=== PATIENT | male | born 1945 | race Caucasian/White ===

== ENCOUNTER → 2016-04-12 | Outpatient (REF) | payer MEDICARE, OTHER ==
[~2016-04-12] MED LIST: /DIVA50TA PO; /ESCI10TA PO; ALPR2TAB3 PO; AMIT24CA5 PO; ASPI81TA7; ASPI81TA85 PO; ATIV1TAB7 PO; ATOR1TAB19 PO; BENA25TA4 PO; BUSP10TA PO; COUM2.5T11 PO; FEBU40TA PO; LAMI1TAB7 PO; LIPI10TA PO; LISI10TA4 PO; LORA1TAB PO; MINI1CAP PO; OMEP40CA2 PO; PAXI20TA3 PO; PERCOCET PO; PRIN10TA PO; REGL10TA6 PO; SERO50TA PO; SUCR1SS PO; TYLE167L PO; VIIB40TA PO; VITA10002 PO; VITA10003 PO; VITA100037 PO; VITAD1000T PO; ZOFR20TA PO; [UNRECOGNIZED DRUG - OTHER] PO
[2016-04-12 20:22] LABS: ALBUMIN 3.6 GM/DL (3.2-5.2); ALBUMIN/GLOBULIN RATIO 1.29 (1.00-1.93); BILIRUBIN,TOTAL 0.3 MG/DL (0.2-1.0); CALCIUM LEVEL 9.1 MG/DL (8.8-10.2); CREATININE FOR GFR 1.36 MG/DL (0.70-1.30); GLOMERULAR FILTRATION RATE 55.5 (>49); POTASSIUM SERUM 4.6 MEQ/L (3.5-5.1); TOTAL PROTEIN 6.4 GM/DL (6.4-8.2)
== END ==
LOC: M LABDRAWC 16:46
PROVIDERS: ATTEND Family Medicine
DX: E78.5 Hyperlipidemia, unspecified (principal); R73.01 Impaired fasting glucose

== ENCOUNTER → 2016-04-13 | Outpatient (CLI) | payer MEDICARE, OTHER ==
[~2016-04-13] VITALS: Ht 182.9 cm; Wt 87.1 kg
[~2016-04-13] MED LIST changes: +LIDOCAINE 2% INJ 100 MG/5 ML SDV (FOR ANES.) As Ordered ONE; +PROPOFOL 200 MG/20 ML VIAL As Ordered ONE
--- NOTE | 2016-04-13 13:18 | ROOR ---
Patient Name: Omar Torres Procedure Date: 04/13/2016 1:03 PM Date of : 1945 Age: 70 Room: [facility] Gender: Male Note Status: Finalized Procedure: Upper GI endoscopy + Biopsies Indications: Heartburn, Nausea Providers: Slava Ghotra MD Referring MD: Josue Louis MD Requesting Provider: Medicines: Monitored Anesthesia Care Complications: No immediate complications. Procedure: Pre-Anesthesia Assessment: - The heart rate, respiratory rate, oxygen saturations, blood pressure, adequacy of pulmonary ventilation, and response to care were monitored throughout the procedure. The Endoscope was introduced through the mouth, and advanced to the second part of duodenum. The upper GI endoscopy was accomplished without difficulty. The patient tolerated the procedure well. Findings: The Z-line was irregular and was found 40 cm from the incisors. Multiple biopsies were obtained with cold forceps for evaluation to rule out Cesar's Esophagus randomly at the gastroesophageal junction. A small hiatal hernia was present. A small hiatal hernia was present. The exam of the stomach was otherwise normal. Biopsies were taken with a cold forceps in the gastric antrum for Helicobacter pylori testing. The exam of the duodenum was otherwise normal. Impression: - Z-line irregular, 40 cm from the incisors. - Small hiatal hernia. - Small hiatal hernia. - Multiple biopsies were obtained at the gastroesophageal junction. - Biopsies were taken with a cold forceps for Helicobacter pylori testing. - The examination was otherwise normal. Recommendation: - Patient has a contact number available for emergencies. The signs and symptoms of potential delayed complications were discussed with the patient. Return to normal activities tomorrow. Written discharge instructions were provided to the patient. - High fiber diet. - Discharge patient to home. - Follow an antireflux regimen. - Continue present medications. - Await pathology results. - Telephone GI clinic for pathology results in 1 week. - Return to referring physician. - The findings and recommendations were discussed with the patient's family. Slava Ghotra MD Slava Ghotra MD 04/13/2016 1:17:53 PM This report has been signed electronically. Number of Addenda: 0 Note Initiated On: 04/13/2016 1:03 PM Estimated Blood Loss: Estimated blood loss: none.
--- NOTE | 2016-04-13 13:33 | ROOR ---
Patient Name: Omar Torres Procedure Date: 04/13/2016 1:04 PM Date of : 1945 Age: 70 Room: [facility] Gender: Male Note Status: Finalized Procedure: Colonoscopy to Cecum + Biopsy Polypectomy Indications: High risk colon cancer surveillance: Personal history of colonic polyps Providers: Slava Ghotra MD Referring MD: Josue Louis MD Requesting Provider: Medicines: Monitored Anesthesia Care Complications: No immediate complications. Procedure: Pre-Anesthesia Assessment: - The heart rate, respiratory rate, oxygen saturations, blood pressure, adequacy of pulmonary ventilation, and response to care were monitored throughout the procedure. The Colonoscope was introduced through the anus and advanced to the cecum, identified by appendiceal orifice and ileocecal valve. The colonoscopy was performed without difficulty. The patient tolerated the procedure well. The quality of the bowel preparation was good. Findings: The perianal and digital rectal examinations were normal. Non-bleeding internal hemorrhoids were found during retroflexion. The hemorrhoids were small and Grade I (internal hemorrhoids that do not prolapse). A small polyp was found in the hepatic flexure. The polyp was sessile. The polyp was removed with a cold biopsy forceps. Resection and retrieval were complete. The exam was otherwise without abnormality on direct and retroflexion views. Impression: - Non-bleeding internal hemorrhoids. - One small polyp at the hepatic flexure, removed with a cold biopsy forceps. Resected and retrieved. - The examination was otherwise normal on direct and retroflexion views. - The exam was otherwise normal to the cecum. Recommendation: - Patient has a contact number available for emergencies. The signs and symptoms of potential delayed complications were discussed with the patient. Return to normal activities tomorrow. Written discharge instructions were provided to the patient. - High fiber diet. - Discharge patient to home. - Continue present medications. - Await pathology results. - Telephone GI clinic for pathology results in 1 week. - Repeat colonoscopy in 5 years for surveillance based on pathology results. - Return to referring physician. - The findings and recommendations were discussed with the patient's family. Slava Ghotra MD Slava Ghotra MD 04/13/2016 1:33:39 PM This report has been signed electronically. Number of Addenda: 0 Note Initiated On: 04/13/2016 1:04 PM Estimated Blood Loss: Estimated blood loss: none.
[2016-04-13 14:21] VITALS: BP 123/62
== END ==
LOC: M OPP 12:16
PROVIDERS: ATTEND Internal Medicine Gastroenterology
DX: Z12.11 Encounter for screening for malignant neoplasm of colon (principal); Z86.010 Personal history of colon polyps; Z80.0 Family history of malignant neoplasm of digestive organs; K64.0 First degree hemorrhoids; D12.3 Benign neoplasm of transverse colon; R12 Heartburn; R11.0 Nausea; K22.8 Other specified diseases of esophagus; K44.9 Diaphragmatic hernia without obstruction or gangrene; K22.70 Barrett's esophagus without dysplasia; I10 Essential (primary) hypertension; F32.9 Major depressive disorder, single episode, unspecified; E78.5 Hyperlipidemia, unspecified; R01.1 Cardiac murmur, unspecified; J45.909 Unspecified asthma, uncomplicated; Z85.828 Personal history of other malignant neoplasm of skin; Z96.659 Presence of unspecified artificial knee joint; Z87.891 Personal history of nicotine dependence; Z79.82 Long term (current) use of aspirin; Z79.899 Other long term (current) drug therapy

== ENCOUNTER → 2016-05-16 | Outpatient (CLI) | payer MEDICARE, OTHER ==
[~2016-05-16] MED LIST changes: -LIDOCAINE 2% INJ 100 MG/5 ML SDV (FOR ANES.) As Ordered ONE; -PROPOFOL 200 MG/20 ML VIAL As Ordered ONE
--- NOTE | 2016-05-16 15:27 | REP ---
CHEST, TWO VIEWS: HISTORY: Respiratory infection. COMPARISON: 12/10/2014. The lungs are clear. The heart is normal in size. The pulmonary vasculature is normal in appearance. There are old right rib fractures. Degenerative change is present in the thoracic spine. IMPRESSION: No acute disease. Signed by Yoan Weiner MD 05/16/2016 03:33 P
== END ==
LOC: M WUC 14:42
PROVIDERS: ATTEND Physician Assistant Medical
DX: J06.9 Acute upper respiratory infection, unspecified (principal); R11.0 Nausea
CPT/HCPCS: 71020; 85025; 85652; 86140; 86301; G0463

== ENCOUNTER → 2016-05-16 | Outpatient (REF) | payer MEDICARE, OTHER ==
[2016-05-16 16:02] LABS: BASO % 0.2 % (0.0-1.0); EOS # 0.1 K/mm3 (0.0-0.50); EOS % 1.4 % (0.0-3.0); LARGE UNSTAINED CELL # 0.2 K/mm3 (0.0-0.4); LARGE UNSTAINED CELL % 2.5 % (0.0-4.0); LYMPH # 0.9 K/mm3 (1.5-4.5); LYMPH % 8.8 % (24.0-44.0); MEAN CORPUSCULAR HEMOGLOBIN 29.6 pg (27.0-33.0); MONO # 0.8 K/mm3 (0.0-0.8); PLATELET COUNT, AUTOMATED 195 k/mm3 (150-450); RED CELL DISTRIBUTION WIDTH 13.5 % (11.5-14.5); WHITE BLOOD COUNT 7.8 K/mm3 (4.0-10.0)
[2016-05-16 18:31] LABS: ERYTHROCYTE SEDIMENTATION RATE 11 mm/hr (0-20)
== END ==
LOC: M SFHCPLAZ 13:53
PROVIDERS: ATTEND Physician Assistant Medical
DX: R11.0 Nausea (principal); J06.9 Acute upper respiratory infection, unspecified

== ENCOUNTER → 2016-07-26 | Outpatient (REF) | payer MEDICARE, OTHER ==
[2016-07-29 14:19] LABS: HEPATITIS C QUANTITATION HCV Not Detected IU/mL (.)
== END ==
LOC: M SFHCPLAZ 12:29
PROVIDERS: ATTEND Physician Assistant Medical
DX: Z11.59 Encounter for screening for other viral diseases (principal)
CPT/HCPCS: 36415; 87522; G0463

== ENCOUNTER → 2016-08-12 | Outpatient (REF) | payer MEDICARE, OTHER ==
[~2016-08-12] MED LIST changes: -AMIT24CA5 PO; +AMIT24CA7 PO; -COUM2.5T11 PO; +COUM2.5T17 PO; -VITA100037 PO; +VITA100067 PO
[2016-08-12 14:19] LABS: BASO % 0.7 % (0.0-1.0); EOS # 0.3 K/mm3 (0.0-0.50); EOS % 4.8 % (0.0-3.0); LARGE UNSTAINED CELL # 0.2 K/mm3 (0.0-0.4); LYMPH # 1.2 K/mm3 (1.5-4.5); LYMPH % 17.5 % (24.0-44.0); MEAN CORPUSCULAR HEMOGLOBIN 29.6 pg (27.0-33.0); MEAN CORPUSCULAR HGB CONC 33.4 g/dl (32.0-36.5); MEAN CORPUSCULAR VOLUME 88.6 fl (80.0-96.0); MONO # 0.5 K/mm3 (0.0-0.8); MONO % 9.4 % (0.0-5.0); NEUTROPHILS # 3.7 K/mm3 (1.8-7.7); NEUTROPHILS % 64.6 % (36.0-66.0); PLATELET COUNT, AUTOMATED 213 k/mm3 (150-450); RED CELL DISTRIBUTION WIDTH 13.8 % (11.5-14.5); WHITE BLOOD COUNT 5.8 K/mm3 (4.0-10.0)
[2016-08-12 15:31] LABS: ALBUMIN 3.5 GM/DL (3.2-5.2); ALBUMIN/GLOBULIN RATIO 1.25 (1.00-1.93); ALKALINE PHOSPHATASE 68 U/L (45-117); ALT/SGPT 31 U/L (12-78); ANION GAP 8 MEQ/L (8-16); AST/SGOT 16 U/L (15-37); BILIRUBIN,TOTAL 0.4 MG/DL (0.2-1.0); BLOOD UREA NITROGEN 19 MG/DL (7-18); CALCIUM LEVEL 9.1 MG/DL (8.8-10.2); CARBON DIOXIDE LEVEL 29 MEQ/L (21-32); CHLORIDE LEVEL 106 MEQ/L (98-107); CREATININE FOR GFR 1.23 MG/DL (0.70-1.30); GLOMERULAR FILTRATION RATE > 60.0 (>49); GLUCOSE, FASTING 92 MG/DL (80-110); POTASSIUM SERUM 4.6 MEQ/L (3.5-5.1); SODIUM LEVEL 143 MEQ/L (136-145); TOTAL PROTEIN 6.3 GM/DL (6.4-8.2)
[2016-08-13 15:12] LABS: Lyme Disease IgG/IgM Antibodie <0.91 ISR (0.00-0.90); Lyme Disease IgM Ab Quantitati <0.80 index (0.00-0.79)
== END ==
LOC: M LABDRAWP 12:27
PROVIDERS: ATTEND Family Medicine
DX: R53.83 Other fatigue (principal)
CPT/HCPCS: 36415; 80053; 85025; 86617; G0463

== ENCOUNTER → 2016-08-18 | Outpatient (REF) | payer MEDICARE, OTHER | LOC: M LAB REF 12:46 | PROVIDERS: ATTEND Dermatology | DX: D23.70 Other benign neoplasm of skin of unspecified lower limb, including hip (principal) | CPT/HCPCS: 11300; 17000; 17003; 88305; G0463 ==

== ENCOUNTER → 2016-08-31 | Outpatient (REF) | payer MEDICARE, OTHER ==
[2016-08-31 11:55] LABS: BASO % 0.6 % (0.0-1.0); EOS # 0.3 K/mm3 (0.0-0.50); EOS % 4.7 % (0.0-3.0); LARGE UNSTAINED CELL # 0.2 K/mm3 (0.0-0.4); LARGE UNSTAINED CELL % 2.9 % (0.0-4.0); LYMPH # 1.3 K/mm3 (1.5-4.5); LYMPH % 18.7 % (24.0-44.0); MEAN CORPUSCULAR HEMOGLOBIN 29.4 pg (27.0-33.0); MEAN CORPUSCULAR HGB CONC 33.5 g/dl (32.0-36.5); MEAN CORPUSCULAR VOLUME 87.9 fl (80.0-96.0); MONO # 0.6 K/mm3 (0.0-0.8); MONO % 7.9 % (0.0-5.0); NEUTROPHILS # 4.5 K/mm3 (1.8-7.7); NEUTROPHILS % 65.1 % (36.0-66.0); PLATELET COUNT, AUTOMATED 223 k/mm3 (150-450); RED CELL DISTRIBUTION WIDTH 13.8 % (11.5-14.5); WHITE BLOOD COUNT 6.9 K/mm3 (4.0-10.0)
[2016-08-31 12:17] LABS: ANION GAP 8 MEQ/L (8-16); BLOOD UREA NITROGEN 19 MG/DL (7-18); CARBON DIOXIDE LEVEL 28 MEQ/L (21-32); CHLORIDE LEVEL 107 MEQ/L (98-107); CREATININE FOR GFR 1.25 MG/DL (0.70-1.30); GLOMERULAR FILTRATION RATE > 60.0 (>49); GLUCOSE, FASTING 105 MG/DL (80-110); POTASSIUM SERUM 4.3 MEQ/L (3.5-5.1); SODIUM LEVEL 143 MEQ/L (136-145)
[2016-08-31 13:15] LABS: ALBUMIN 3.7 GM/DL (3.2-5.2); ALBUMIN/GLOBULIN RATIO 1.19 (1.00-1.93); ALKALINE PHOSPHATASE 73 U/L (45-117); ALT/SGPT 34 U/L (12-78); ANION GAP 7 MEQ/L (8-16); AST/SGOT 24 U/L (15-37); BILIRUBIN,TOTAL 0.5 MG/DL (0.2-1.0); BLOOD UREA NITROGEN 19 MG/DL (7-18); CALCIUM LEVEL 8.8 MG/DL (8.8-10.2); CARBON DIOXIDE LEVEL 28 MEQ/L (21-32); CHLORIDE LEVEL 108 MEQ/L (98-107); CREATININE FOR GFR 1.25 MG/DL (0.70-1.30); GLOMERULAR FILTRATION RATE > 60.0 (>49); GLUCOSE, FASTING 103 MG/DL (80-110); POTASSIUM SERUM 4.4 MEQ/L (3.5-5.1); SODIUM LEVEL 143 MEQ/L (136-145); TOTAL PROTEIN 6.8 GM/DL (6.4-8.2); URIC ACID 4.6 MG/DL (3.5-7.2)
== END ==
LOC: M SFHCCLAY 08:31
PROVIDERS: ATTEND Family Medicine
DX: N18.3 Chronic kidney disease, stage 3 (moderate) (principal); C61 Malignant neoplasm of prostate; M10.9 Gout, unspecified; Z11.59 Encounter for screening for other viral diseases; R73.01 Impaired fasting glucose
CPT/HCPCS: 80053; 82306; 83036; 83970; 84550; 85025; 86704; 86705; G0103

== ENCOUNTER → 2017-01-09 | Outpatient (REF) | payer MEDICARE, OTHER ==
[2017-01-09 12:15] LABS: ALKALINE PHOSPHATASE 78 U/L (45-117); ALT/SGPT 42 U/L (12-78); ANION GAP 5 MEQ/L (8-16); AST/SGOT 20 U/L (7-37); BILIRUBIN,TOTAL 0.6 MG/DL (0.2-1.0); BLOOD UREA NITROGEN 21 MG/DL (7-18); CARBON DIOXIDE LEVEL 31 MEQ/L (21-32); CHLORIDE LEVEL 106 MEQ/L (98-107); GLOMERULAR FILTRATION RATE > 60.0 (>49); GLUCOSE, FASTING 88 MG/DL (80-110); POTASSIUM SERUM 4.4 MEQ/L (3.5-5.1); SODIUM LEVEL 142 MEQ/L (136-145)
[2017-01-09 12:16] LABS: ALBUMIN 3.7 GM/DL (3.2-5.2); ALBUMIN/GLOBULIN RATIO 1.28 (1.00-1.93); CHOLESTEROL LEVEL 153 MG/DL (<200); TOTAL PROTEIN 6.6 GM/DL (6.4-8.2); TRIGLYCERIDES LEVEL 127 MG/DL (<150)
[2017-01-09 12:21] LABS: VITAMIN B12 LEVEL > 2000 PG/ML (247-911)
== END ==
LOC: M SFHCCLAY 08:35
PROVIDERS: ATTEND Family Medicine
DX: E55.9 Vitamin D deficiency, unspecified (principal); R73.01 Impaired fasting glucose; E53.8 Deficiency of other specified B group vitamins; Z79.899 Other long term (current) drug therapy

== ENCOUNTER → 2017-05-31 | Outpatient (REF) | payer MEDICARE, OTHER ==
[2017-05-31 12:10] LABS: BASO % 0.6 % (0.0-1.0); EOS # 0.2 10^3/uL (0.0-0.50); EOS % 3.2 % (0.0-3.0); HEMATOCRIT 45.5 % (42.0-52.0); HEMOGLOBIN 15.1 g/dl (13.5-17.5); IMMATURE GRANULOCYTE % 0.3 % (0-3.0); LYMPH # 1.2 10^3/uL (1.5-4.5); LYMPH % 18.4 % (24.0-44.0); MEAN CORPUSCULAR HGB CONC 33.2 g/dl (32.0-36.5); MEAN CORPUSCULAR VOLUME 90.3 fl (80.0-96.0); MONO # 0.6 10^3/uL (0.0-0.8); MONO % 9.7 % (0.0-5.0); NEUTROPHILS # 4.2 10^3/uL (1.8-7.7); NEUTROPHILS % 67.8 % (36.0-66.0); PLATELET COUNT, AUTOMATED 215 10^3/uL (150-450); RED BLOOD COUNT 5.04 10^6/uL (4.30-6.10); WHITE BLOOD COUNT 6.3 10^3/uL (4.0-10.0)
[2017-05-31 12:35] LABS: ALBUMIN 3.8 GM/DL (3.2-5.2); ALBUMIN/GLOBULIN RATIO 1.27 (1.00-1.93); ALKALINE PHOSPHATASE 69 U/L (45-117); ALT/SGPT 31 U/L (12-78); ANION GAP 6 MEQ/L (8-16); AST/SGOT 20 U/L (7-37); BILIRUBIN,TOTAL 0.5 MG/DL (0.2-1.0); BLOOD UREA NITROGEN 21 MG/DL (7-18); CALCIUM LEVEL 8.8 MG/DL (8.8-10.2); CARBON DIOXIDE LEVEL 30 MEQ/L (21-32); CHLORIDE LEVEL 107 MEQ/L (98-107); CREATININE FOR GFR 1.24 MG/DL (0.70-1.30); FERRITIN 27 NG/ML (26-388); GLOMERULAR FILTRATION RATE > 60.0 (>49); GLUCOSE, FASTING 90 MG/DL (70-100); IRON (FE) 94 UG/DL (65-175); MAGNESIUM LEVEL 2.5 MG/DL (1.8-2.4); PERCENT SATURATION 24.4 % (19.7-50.0); POTASSIUM SERUM 4.6 MEQ/L (3.5-5.1); PSA SCREENING < 0.01 NG/ML (< 4.0); SODIUM LEVEL 143 MEQ/L (136-145); TOTAL IRON BINDING CAPACITY 385 UG/DL (250-450); TOTAL PROTEIN 6.8 GM/DL (6.4-8.2)
[2017-05-31 12:47] LABS: ESTIMATED AVERAGE GLUCOSE 120 MG/DL (60-110); HEMOGLOBIN A1c 5.8 %
[2017-05-31 15:35] LABS: HEMATOCRIT 45.5 % (42.0-52.0)
[2017-06-02 13:38] LABS: PRETREATED FOLATE FOR RBCFOL 12.1 NG/ML; RBC FOLATE 558.5 NG/ML (280-791)
== END ==
LOC: M SFHCCLAY 08:16
DX: I10 Essential (primary) hypertension (principal); E53.8 Deficiency of other specified B group vitamins; R73.01 Impaired fasting glucose; C61 Malignant neoplasm of prostate; Z12.5 Encounter for screening for malignant neoplasm of prostate
CPT/HCPCS: 83550

== ENCOUNTER → 2017-10-16 | Outpatient (REF) | payer MEDICARE, OTHER ==
[2017-10-16 12:07] LABS: ESTIMATED AVERAGE GLUCOSE 117 MG/DL (60-110); HEMOGLOBIN A1c 5.7 %
[2017-10-16 12:08] LABS: VITAMIN B12 LEVEL > 2000 PG/ML (247-911)
[2017-10-16 12:18] LABS: C REACTIVE PROTEIN QUANTITATIV 0.66 MG/DL (0.00-0.30); CHOLESTEROL LEVEL 145 MG/DL (<200); CHOLESTEROL RISK RATIO 2.636 (<5); CPK CREATINE PHOSPHOKINASE 247 U/L (39-308); FREE T4 0.92 NG/DL (0.76-1.46); HDL CHOLESTEROL 55 MG/DL (>40); LDL CHOLESTEROL 66.8 MG/DL (<100); NON-HDL-C 90 MG/DL; TRIGLYCERIDES LEVEL 116 MG/DL (<150)
== END ==
LOC: M SFHCPLAZ 08:12
DX: E53.8 Deficiency of other specified B group vitamins (principal); E78.5 Hyperlipidemia, unspecified; K59.09 Other constipation; R73.01 Impaired fasting glucose
CPT/HCPCS: 82550

== ENCOUNTER → 2018-02-26 | Outpatient (REF) | payer MEDICARE, OTHER ==
[~2018-02-26] MED LIST changes: -ZOFR20TA PO; +ZOFR4TAB16 PO
[2018-02-26 12:57] LABS: ALBUMIN 3.5 GM/DL (3.2-5.2); ALT/SGPT 34 U/L (12-78); BILIRUBIN,TOTAL 0.4 MG/DL (0.2-1.0); BLOOD UREA NITROGEN 22 MG/DL (7-18); CALCIUM LEVEL 8.5 MG/DL (8.8-10.2); CARBON DIOXIDE LEVEL 26 MEQ/L (21-32); CHLORIDE LEVEL 107 MEQ/L (98-107); CREATININE FOR GFR 1.27 MG/DL (0.70-1.30); GLOMERULAR FILTRATION RATE 59.7 (>42); GLUCOSE, FASTING 88 MG/DL (70-100); MAGNESIUM LEVEL 2.4 MG/DL (1.8-2.4); POTASSIUM SERUM 4.4 MEQ/L (3.5-5.1); PROSTATIC SPECIFIC AG MONITOR < 0.01 NG/ML (< 4.00); PTH INTACT 73.4 PG/ML (18.5-88.0); SODIUM LEVEL 140 MEQ/L (136-145); TOTAL 25(OH) VITAMIN D 38.5 NG/ML (30.0-100.0); TOTAL PROTEIN 6.4 GM/DL (6.4-8.2); URIC ACID 4.2 MG/DL (3.5-7.2)
== END ==
LOC: M SFHCCLAY 08:33
PROVIDERS: ATTEND Family Medicine
DX: I10 Essential (primary) hypertension (principal); E55.9 Vitamin D deficiency, unspecified; M10.9 Gout, unspecified; C61 Malignant neoplasm of prostate

== ENCOUNTER → 2018-03-01 | Outpatient (REF) | payer MEDICARE, OTHER | LOC: M SFHCPLAZ 13:17 | PROVIDERS: ATTEND Family Medicine | DX: F41.0 Panic disorder [episodic paroxysmal anxiety] (principal) | CPT/HCPCS: 36415; 80178; G0463 ==

== ENCOUNTER → 2018-06-04 | Outpatient (REF) | payer MEDICARE, OTHER ==
[~2018-06-04] MED LIST changes: -/DIVA50TA PO; -/ESCI10TA PO; +DEPA1TAB3 PO; +LEXA1TAB PO
[2018-06-04 13:54] LABS: ALBUMIN 3.7 GM/DL (3.2-5.2); CALCIUM LEVEL 9.2 MG/DL (8.8-10.2); CREATININE FOR GFR 1.36 MG/DL (0.70-1.30); FREE T3 2.7 PG/ML (2.2-4.0); GLOMERULAR FILTRATION RATE 55.2 (>42); LITHIUM LEVEL 0.42 MEQ/L (0.60-1.20); PHOSPHORUS LEVEL 2.3 MG/DL (2.5-4.9); POTASSIUM SERUM 5.1 MEQ/L (3.5-5.1); THYROID STIMULATING HORMONE 2.4 uIU/ML (0.358-3.740); THYROXINE (T4) 6.6 UG/DL (4.5-12.0)
== END ==
LOC: M LABDRAWC 11:57
PROVIDERS: ATTEND Anesthesiology Pain Medicine
DX: Z79.899 Other long term (current) drug therapy (principal)

== ENCOUNTER → 2018-08-03 | Outpatient (REF) | payer MEDICARE, OTHER ==
[2018-08-03 11:47] LABS: BASO % 0.6 % (0.0-1.0); EOS # 0.3 10^3/uL (0.0-0.50); EOS % 4.1 % (0.0-3.0); HEMATOCRIT 48.4 % (42.0-52.0); HEMOGLOBIN 15.9 g/dl (13.5-17.5); LYMPH # 1.1 10^3/uL (1.5-4.5); LYMPH % 17.1 % (24.0-44.0); MEAN CORPUSCULAR HEMOGLOBIN 29.7 pg (27.0-33.0); MEAN CORPUSCULAR HGB CONC 32.9 g/dl (32.0-36.5); MEAN CORPUSCULAR VOLUME 90.5 fl (80.0-96.0); MONO # 0.5 10^3/uL (0.0-0.8); MONO % 8.2 % (0.0-5.0); NEUTROPHILS # 4.6 10^3/uL (1.8-7.7); NEUTROPHILS % 69.5 % (36.0-66.0); PLATELET COUNT, AUTOMATED 213 10^3/uL (150-450); RED BLOOD COUNT 5.35 10^6/uL (4.30-6.10); WHITE BLOOD COUNT 6.6 10^3/uL (4.0-10.0)
[2018-08-03 12:20] LABS: ALBUMIN 4.1 GM/DL (3.2-5.2); BILIRUBIN,TOTAL 0.6 MG/DL (0.2-1.0); CALCIUM LEVEL 9.5 MG/DL (8.8-10.2); CREATININE FOR GFR 1.38 MG/DL (0.70-1.30); GLOMERULAR FILTRATION RATE 54.2 (>42); LITHIUM LEVEL 0.44 MEQ/L (0.60-1.20); POTASSIUM SERUM 4.5 MEQ/L (3.5-5.1); TOTAL PROTEIN 7.1 GM/DL (6.4-8.2)
[2018-08-03 12:24] LABS: HEMOGLOBIN A1c 6.4 %
== END ==
LOC: M SFHCCLAY 08:06
PROVIDERS: ATTEND Family Medicine
DX: N18.3 Chronic kidney disease, stage 3 (moderate) (principal); R73.01 Impaired fasting glucose; F41.0 Panic disorder [episodic paroxysmal anxiety]; E53.8 Deficiency of other specified B group vitamins

== ENCOUNTER → 2018-11-09 | Outpatient (REF) | payer MEDICARE, OTHER ==
[~2018-11-09] MED LIST changes: -FEBU40TA PO; +FEBU40TA4 PO
[2018-11-09 18:22] LABS: ALBUMIN 4.1 GM/DL (3.2-5.2); CALCIUM LEVEL 9.1 MG/DL (8.8-10.2); CREATININE FOR GFR 1.66 MG/DL (0.70-1.30); FREE T3 2.5 PG/ML (2.2-4.0); GLOMERULAR FILTRATION RATE 43.7 (>42); LITHIUM LEVEL 0.39 MEQ/L (0.60-1.20); PHOSPHORUS LEVEL 1.7 MG/DL (2.5-4.9); POTASSIUM SERUM 4.2 MEQ/L (3.5-5.1); THYROID STIMULATING HORMONE 2.78 uIU/ML (0.358-3.740); THYROXINE (T4) 6.5 UG/DL (4.5-12.0)
== END ==
LOC: M LABDRAWC 16:21
PROVIDERS: ATTEND Anesthesiology Pain Medicine
DX: Z79.899 Other long term (current) drug therapy (principal)

== ENCOUNTER → 2019-01-21 | Outpatient (REF) | payer MEDICARE, OTHER ==
[2019-01-21 11:43] LABS: ALT/SGPT 45 U/L (12-78); BILIRUBIN,TOTAL 0.6 MG/DL (0.2-1.0); BLOOD UREA NITROGEN 21 MG/DL (7-18); CARBON DIOXIDE LEVEL 29 MEQ/L (21-32); CHLORIDE LEVEL 109 MEQ/L (98-107); CREATININE FOR GFR 1.25 MG/DL (0.70-1.30); FREE T4 1.01 NG/DL (0.76-1.46); GLOMERULAR FILTRATION RATE > 60.0 (>42); GLUCOSE, FASTING 108 MG/DL (70-100); POTASSIUM SERUM 4.6 MEQ/L (3.5-5.1); PROSTATIC SPECIFIC AG MONITOR < 0.01 NG/ML (< 4.00); SODIUM LEVEL 143 MEQ/L (136-145); TOTAL PROTEIN 6.7 GM/DL (6.4-8.2)
[2019-01-21 12:32] LABS: HEMOGLOBIN A1c 6.3 %
[2019-01-21 16:37] LABS: APPEARANCE, URINE CLEAR (CLEAR); BACTERIA, URINE AUTO NEGATIVE (NEGATIVE); BILIRUBIN, URINE AUTO NEGATIVE (NEGATIVE); BLOOD, URINE BLOOD NEGATIVE (NEGATIVE); COLOR, URINE YELLOW (YELLOW); GLUCOSE, URINE (UA) AUTO NEGATIVE (NEGATIVE); KETONE, URINE AUTO NEGATIVE (NEGATIVE); LEUKOCYTE ESTERASE, URINE AUTO NEGATIVE (NEGATIVE); MUCUS, URINE SMALL (NEGATIVE); NITRITE, URINE AUTO NEGATIVE (NEGATIVE); PROTEIN, URINE AUTO NEGATIVE (NEGATIVE); RBC, URINE AUTO 2 /HPF (0-3); SPECIFIC GRAVITY URINE AUTO 1.017 (1.002-1.035); SQUAMOUS EPITHELIAL CELL UR AU 0 /HPF (0-6); UROBILINOGEN, URINE AUTO 0.2 mg/dL (0.0-2.0); WBC, URINE AUTO 0 /HPF (0-3)
[2019-01-21 17:12] LABS: MALB URINE SIEMENS 13.6 MG/L; MAU/CREAT RATIO 7.3 MCG/MG (0.0-30.0)
== END ==
LOC: M SFHCCLAY 08:46
PROVIDERS: ATTEND Family Medicine
DX: R73.01 Impaired fasting glucose (principal); E78.5 Hyperlipidemia, unspecified; C61 Malignant neoplasm of prostate

== ENCOUNTER → 2019-02-07 | Outpatient (REF) | payer MEDICARE, OTHER | LOC: M LAB REF 19:02 | PROVIDERS: ATTEND Dermatology | DX: D29.4 Benign neoplasm of scrotum (principal) ==

== ENCOUNTER → 2019-03-06 | Outpatient (REF) | payer MEDICARE, OTHER | LOC: M LAB REF 10:53 | PROVIDERS: ATTEND Dermatology | DX: L57.0 Actinic keratosis (principal) ==

== ENCOUNTER → 2019-04-16 | Outpatient (CLI) | payer MEDICARE, OTHER ==
--- NOTE | 2019-04-16 14:57 | REPVR ---
PROCEDURE INFORMATION: Exam: CT Maxillofacial Without Contrast, Sinus Exam date and time: 04/16/2019 2:33 PM Age: 73 years old Clinical indication: Other: Sinus pain; Additional info: R43.8 oth disturbances of smell/taste chronic rhin TECHNIQUE: Imaging protocol: CT Maxillofacial without contrast. Focus on the sinuses. Radiation optimization: All CT scans at this facility use at least one of these dose optimization techniques: automated exposure control; mA and/or kV adjustment per patient size (includes targeted exams where dose is matched to clinical indication); or iterative reconstruction. COMPARISON: No relevant prior studies available. FINDINGS: Frontal sinuses: Right frontal sinus is hypoplastic. No air-fluid levels. Ethmoid air cells: Normal. No air-fluid levels. Sphenoid sinuses: Normal. No air-fluid levels. Maxillary sinuses: Normal. No air-fluid levels. Ostiomeatal units are patent. Orbits: Examination reveals bilateral globes to be normal in size and morphology. The optic nerves are normal in thickness and symmetric bilaterally. The extraocular muscles are normal in thickness and signal intensity. The retroconal fat has a normal appearance. The lacrimal glands appear normal bilaterally. Mastoid air cells: The visualized mastoid air cells are clear. Nasal cavity/Septum: The nasal septum is in the midline. The ostiomeatal complexes are patent. Dental: Metallic beam hardening artifact from dental hardware limits evaluation in this region. Soft tissues: Unremarkable. Bones/joints: The visualized paranasal sinuses are clear. There are no air fluid levels to suggest acute sinusitis. The bony orbital amador are intact. No fractures are identified. The visualized osseous structures are unremarkable. No acute fracture or dislocation is seen. IMPRESSION: 1. The visualized paranasal sinuses are clear. There are no air fluid levels to suggest acute sinusitis. 2. The nasal septum is in the midline. The ostiomeatal complexes are patent. Electronically signed by: Albert Vera On 04/16/2019 14:57:20 PM
== END ==
LOC: M RAD 14:17
PROVIDERS: ATTEND Physician Assistant Medical
DX: R43.8 Other disturbances of smell and taste (principal)

== ENCOUNTER → 2019-06-06 | Outpatient (REF) | payer MEDICARE, OTHER ==
[2019-06-06 11:47] LABS: BASO % 0.4 % (0.0-1.0); EOS # 0.3 10^3/uL (0.0-0.5); EOS % 4.2 % (0.0-3.0); HEMATOCRIT 46.7 % (42.0-52.0); LYMPH # 1.4 10^3/uL (1.5-5.0); LYMPH % 20.3 % (24.0-44.0); MEAN CORPUSCULAR HEMOGLOBIN 29.2 pg (27.0-33.0); MEAN CORPUSCULAR HGB CONC 32.1 g/dl (32.0-36.5); MONO # 0.8 10^3/uL (0.0-0.8); MONO % 10.9 % (0.0-5.0); NEUTROPHILS # 4.4 10^3/uL (1.5-8.5); NEUTROPHILS % 64.1 % (36.0-66.0); PLATELET COUNT, AUTOMATED 207 10^3/uL (150-450); RED BLOOD COUNT 5.13 10^6/uL (4.30-6.10); WHITE BLOOD COUNT 6.9 10^3/uL (4.0-10.0)
[2019-06-06 11:51] LABS: ALBUMIN 3.8 GM/DL (3.2-5.2); BILIRUBIN,TOTAL 0.4 MG/DL (0.2-1.0); CALCIUM LEVEL 9.1 MG/DL (8.8-10.2); CHOLESTEROL RISK RATIO 2.472 (<5); CREATININE FOR GFR 1.27 MG/DL (0.70-1.30); GLOMERULAR FILTRATION RATE 59.5 (>42); POTASSIUM SERUM 4.5 MEQ/L (3.5-5.1); TOTAL PROTEIN 6.9 GM/DL (6.4-8.2); URIC ACID 4.5 MG/DL (3.5-7.2)
[2019-06-06 12:01] LABS: PTH INTACT 47.4 PG/ML (18.5-88.0); TOTAL 25(OH) VITAMIN D 41.1 NG/ML (30.0-100.0)
[2019-06-06 12:30] LABS: HEMOGLOBIN A1c 5.9 %
== END ==
LOC: M SFHCCLAY 08:16
PROVIDERS: ATTEND Family Medicine
DX: E53.8 Deficiency of other specified B group vitamins (principal); E55.9 Vitamin D deficiency, unspecified; R73.01 Impaired fasting glucose; E78.5 Hyperlipidemia, unspecified

== ENCOUNTER → 2019-06-24 | Outpatient (CLI) | payer MEDICARE, OTHER ==
--- NOTE | 2019-06-24 14:43 | REP ---
MRI BRAIN WITHOUT CONTRAST: HISTORY: Mild cognitive impairment. Memory loss. Comparison is made with CT study from March 20, 2013 as well as prior MRI study from April 18, 2005. TECHNIQUE: Axial and sagittal imaging planes are utilized for T1 and T2-weighted scans. Sequences include spin-echo, fast spin echo, FLAIR, and diffusion weighted sequences. MRI FINDINGS: Cortical and medullary bone signal intensity are normal. Craniocervical junction and upper cervical cord are unremarkable. There is no MR evidence of significant paranasal sinus disease. No intraorbital abnormality is seen. There is mild generalized volume loss. There are scattered foci of subcortical and periventricular T2 hyperintensity on FLAIR and T2-weighted scans. These foci are similar but more numerous when compared with the April 18, 2005 prior study and are most compatible with small vessel atherosclerotic changes. There is no evidence of acute infarction or other cause of restricted diffusion on diffusion sequence. There is no evidence of intracranial hemorrhage. No mass, extra-axial fluid collection, or midline shift is seen. IMPRESSION: Small vessel changes and minimal volume loss. No acute intracranial abnormality. Electronically Signed by Darwin Franco MD 06/24/2019 03:45 P
== END ==
LOC: M RAD 10:01
PROVIDERS: ATTEND Family Medicine
DX: G31.84 Mild cognitive impairment of uncertain or unknown etiology (principal); I67.2 Cerebral atherosclerosis

== ENCOUNTER → 2019-07-15 | Outpatient (CLI) | payer MEDICARE, OTHER ==
[~2019-07-15] MED LIST changes: +B-CO1TAB12 PO; +CALC600T66 PO; +CLON0.5T2 PO; +IRBE75TA4 PO; +LATU40TA PO; +MAGN400C PO; +METF500T13 PO; +OMEP40CA97 PO; +VITA200016 PO; +ZINC1TAB2 PO
== END ==
LOC: M LABSMTC 13:25
PROVIDERS: ATTEND Anesthesiology
DX: Z01.818 Encounter for other preprocedural examination (principal); Z11.59 Encounter for screening for other viral diseases
CPT/HCPCS: C9803; U0002

== ENCOUNTER 2019-07-17 12:33 | Day surgery (SDC) | payer MEDICARE, OTHER ==
[~2019-07-17] VITALS: Ht 182.9 cm; Wt 89.7 kg
[~2019-07-17 12:33] MED LIST changes: +NS 1,000 ML IV ONE; +fentaNYL 100 MCG/2 ML INJECTION (J3010) As Ordered ONE
[2019-07-17] MEDS ORDERED: propofoL 200 MG/20 ML VIAL As Ordered ONE (12:39)
[2019-07-17] MEDS ORDERED: LIDOCAINE 2% 100MG/5ML SDV (FOR ANES.) As Ordered ONE (12:55)
--- NOTE | 2019-07-17 13:40 | ROOR ---
Patient Name: Omar Torres Procedure Date: 07/17/2019 1:19 PM Date of : 1945 Age: 73 Room: [facility] Gender: Male Note Status: Finalized Procedure: Upper Endoscopy + Biopsies Indications: Heartburn, Follow-up of Cesar's esophagus Providers: Slava Ghotra MD Referring MD: Josue Louis MD Requesting Provider: Medicines: Monitored Anesthesia Care Complications: No immediate complications. Procedure: Pre-Anesthesia Assessment: - The heart rate, respiratory rate, oxygen saturations, blood pressure, adequacy of pulmonary ventilation, and response to care were monitored throughout the procedure. The Endoscope was introduced through the mouth, and advanced to the second part of duodenum. The upper GI endoscopy was accomplished without difficulty. The patient tolerated the procedure well. Findings: The Z-line was irregular and was found 38 cm from the incisors. Multiple biopsies were obtained with cold forceps for evaluation to rule out Cesar's Esophagus randomly at the gastroesophageal junction. A medium-sized hiatal hernia was present. No other significant abnormalities were identified in a careful examination of the stomach. Biopsies were taken with a cold forceps in the gastric antrum for Helicobacter pylori testing. The exam of the duodenum was otherwise normal. Impression: - Z-line irregular, 38 cm from the incisors. - Medium-sized hiatal hernia. - Multiple biopsies were obtained at the gastroesophageal junction. - Biopsies were taken with a cold forceps for Helicobacter pylori testing. - The examination was otherwise normal. Recommendation: - Patient has a contact number available for emergencies. The signs and symptoms of potential delayed complications were discussed with the patient. Return to normal activities tomorrow. Written discharge instructions were provided to the patient. - High fiber diet. - Discharge patient to home. - Continue present medications. - Await pathology results. - Telephone GI clinic for pathology results in 1 week. - Return to referring physician. - Repeat upper endoscopy for surveillance based on pathology results. - The findings and recommendations were discussed with the patient's family. Slava Ghotra MD Slava Ghotra MD 07/17/2019 1:39:44 PM Electronically signed by Slava Ghotra MD Number of Addenda: 0 Note Initiated On: 07/17/2019 1:19 PM Estimated Blood Loss: Estimated blood loss: none.
--- NOTE | 2019-07-17 13:59 | ROOR ---
Patient Name: Omar Torres Procedure Date: 07/17/2019 1:20 PM Date of : 1945 Age: 73 Room: [facility] Gender: Male Note Status: Finalized Procedure: Total Colonoscopy to Cecum + Biopsy Polypectomy Indications: Screening in patient at increased risk: Colorectal cancer in mother before age 60, High risk colon cancer surveillance: Personal history of colonic polyps, Last colonoscopy: 2016 Providers: Slava Ghotra MD Referring MD: Josue Louis MD Requesting Provider: Medicines: Monitored Anesthesia Care Complications: No immediate complications. Procedure: Pre-Anesthesia Assessment: - The heart rate, respiratory rate, oxygen saturations, blood pressure, adequacy of pulmonary ventilation, and response to care were monitored throughout the procedure. The Colonoscope was introduced through the anus and advanced to the cecum, identified by appendiceal orifice and ileocecal valve. The colonoscopy was performed without difficulty. The patient tolerated the procedure well. The quality of the bowel preparation was excellent. Findings: The perianal and digital rectal examinations were normal. Non-bleeding internal hemorrhoids were found during retroflexion. The hemorrhoids were small and Grade I (internal hemorrhoids that do not prolapse). Multiple small and large-mouthed diverticula were found in the recto-sigmoid colon, sigmoid colon and descending colon. A small polyp was found at 50 cm proximal to the anus. The polyp was sessile. The polyp was removed with a jumbo cold forceps. Resection and retrieval were complete. The exam was otherwise without abnormality on direct and retroflexion views. Impression: - Non-bleeding internal hemorrhoids. - Diverticulosis in the recto-sigmoid colon, in the sigmoid colon and in the descending colon. - One small polyp at 50 cm proximal to the anus, removed with a jumbo cold forceps. Resected and retrieved. - The examination was otherwise normal on direct and retroflexion views. - The exam was otherwise normal to the cecum. Recommendation: - Patient has a contact number available for emergencies. The signs and symptoms of potential delayed complications were discussed with the patient. Return to normal activities tomorrow. Written discharge instructions were provided to the patient. - High fiber diet. - Discharge patient to home. - Continue present medications. - Await pathology results. - Telephone GI clinic for pathology results in 1 week. - Repeat colonoscopy for surveillance based on pathology results. - Return to referring physician. - The findings and recommendations were discussed with the patient's family. Slava Ghotra MD Slava Ghotra MD 07/17/2019 1:59:05 PM Electronically signed by Slava Ghotra MD Number of Addenda: 0 Note Initiated On: 07/17/2019 1:20 PM Estimated Blood Loss: Estimated blood loss: none.
[2019-07-17 14:20] VITALS: BP 136/95
== END 2019-07-17 14:33 | disposition home or self-care (01) ==
LOC: M OPP 12:33
PROVIDERS: ATTEND Internal Medicine Gastroenterology
DX: Z12.11 Encounter for screening for malignant neoplasm of colon (principal); Z86.010 Personal history of colon polyps; Z80.0 Family history of malignant neoplasm of digestive organs; K64.0 First degree hemorrhoids; D12.6 Benign neoplasm of colon, unspecified; K57.30 Diverticulosis of large intestine without perforation or abscess without bleeding; K22.8 Other specified diseases of esophagus; K44.9 Diaphragmatic hernia without obstruction or gangrene; K22.70 Barrett's esophagus without dysplasia; R12 Heartburn; E11.9 Type 2 diabetes mellitus without complications; I34.9 Nonrheumatic mitral valve disorder, unspecified; Z79.82 Long term (current) use of aspirin; Z79.84 Long term (current) use of oral hypoglycemic drugs; Z79.899 Other long term (current) drug therapy; Z88.0 Allergy status to penicillin; Z88.4 Allergy status to anesthetic agent; Z91.013 Allergy to seafood
CPT/HCPCS: 43239; 45380; 88305; J3010

== ENCOUNTER → 2019-09-04 | Outpatient (REF) | payer MEDICARE, OTHER ==
[~2019-09-04] MED LIST changes: -NS 1,000 ML IV ONE; -fentaNYL 100 MCG/2 ML INJECTION (J3010) As Ordered ONE
== END ==
LOC: M LAB REF 08:08
PROVIDERS: ATTEND Dermatology
DX: L57.0 Actinic keratosis (principal)

== ENCOUNTER → 2019-09-09 | Outpatient (CLI) | payer MEDICARE, OTHER ==
[~2019-09-09] MED LIST changes: +ABIL1TAB13 PO; +ASPI-161 PO; -ASPI81TA85 PO; +ASPI81TA86 PO; +CALC1TAB26 PO; +FEBU40TA2 PO; +GABA-1171 PO; +METF-838 PO; +PROP10TA56 PO; +SERT25TA21 PO; +SULF1TAB93 PO; +TRAZ-189 PO
[2019-09-09 19:35] LABS: BASO % 0.4 % (0.0-1.0); EOS # 0.2 10^3/uL (0.0-0.5); EOS % 2.5 % (0.0-3.0); HEMATOCRIT 46.4 % (42.0-52.0); HEMOGLOBIN 15.3 g/dl (13.5-17.5); LYMPH # 1.4 10^3/uL (1.5-5.0); MEAN CORPUSCULAR HEMOGLOBIN 30.2 pg (27.0-33.0); MEAN CORPUSCULAR VOLUME 91.7 fl (80.0-96.0); MONO # 0.7 10^3/uL (0.0-0.8); MONO % 8.6 % (0.0-5.0); NEUTROPHILS # 5.8 10^3/uL (1.5-8.5); NEUTROPHILS % 71.3 % (36.0-66.0); PLATELET COUNT, AUTOMATED 214 10^3/uL (150-450); RED BLOOD COUNT 5.06 10^6/uL (4.30-6.10); WHITE BLOOD COUNT 8.1 10^3/uL (4.0-10.0)
[2019-09-09 19:44] LABS: BILIRUBIN,TOTAL 0.4 MG/DL (0.2-1.0); CALCIUM LEVEL 9.7 MG/DL (8.8-10.2); CREATININE FOR GFR 1.37 MG/DL (0.70-1.30); GLOMERULAR FILTRATION RATE 54.5 (>42); POTASSIUM SERUM 4.7 MEQ/L (3.5-5.1)
== END ==
LOC: M LAB 16:48
PROVIDERS: ATTEND Family Medicine
DX: G40.309 Generalized idiopathic epilepsy and epileptic syndromes, not intractable, without status epilepticus (principal)
CPT/HCPCS: 36415; 80053; 80175; 85025; G0463

== ENCOUNTER 2019-10-12 13:06 | Inpatient (IN) | payer MEDICARE, OTHER ==
[~2019-10-12 13:06] MED LIST changes: -ABIL1TAB13 PO; -ASPI-161 PO; -CALC1TAB26 PO; -FEBU40TA2 PO; -GABA-1171 PO; -METF-838 PO; -PROP10TA56 PO; -SERT25TA21 PO; -SULF1TAB93 PO; -TRAZ-189 PO
[2019-10-12] MEDS ORDERED: LORazepam 1 MG TAB As Ordered ONE ×2 (14:15→15:29)
[2019-10-12] MEDS ORDERED: BENZTROPINE 1 MG TAB As Ordered ONE (18:08)
[2019-10-12] MEDS ORDERED: OLANZapine 10 MG TAB As Ordered ONE (22:55)
[2019-10-13] MEDS ORDERED: LURASIDONE 20 MG TAB (LATUDA) As Ordered ONE (09:15)
[2019-10-13] MEDS ORDERED: metFORMIN XR 500MG TAB *GLUCOPHAGE XR As Ordered ONE ×2 (09:15→18:24)
[2019-10-13] MEDS ORDERED: clonazePAM 0.5 MG TAB As Ordered ONE (10:26)
[2019-10-13] MEDS ORDERED: FEBUXOSTAT 40 MG TABLET (ULORIC) ONE (13:00)
[2019-10-13] MEDS ORDERED: CALCIUM/VITAMIN D 500 MG TAB ONE (13:00)
[2019-10-13] MEDS ORDERED: IRBESARTAN 150MG TAB ONE (13:00)
[2019-10-13] MEDS ORDERED: lamoTRIgine 100MG TAB As Ordered ONE (14:59)
[2019-10-13] MEDS ORDERED: ATORVASTATIN 10 MG TAB As Ordered ONE (14:59)
[2019-10-13] MEDS ORDERED: SERTRALINE HCL 25 MG TABLET As Ordered ONE (14:59)
[2019-10-13] MEDS ORDERED: busPIRone 10 MG TAB As Ordered ONE ×2 (14:59→21:14)
[2019-10-13] MEDS ORDERED: OMEPRAZOLE 20 MG CAP As Ordered ONE ×2 (15:00→21:15)
[2019-10-13] MEDS ORDERED: GABAPENTIN 100 MG CAP As Ordered ONE ×2 (15:00→21:15)
[2019-10-13] MEDS ORDERED: MAGNESIUM OXIDE 400 MG TAB (MAG-OX) As Ordered ONE ×2 (15:00→21:16)
[2019-10-13] MEDS ORDERED: traZODone 100 MG TAB As Ordered ONE (21:14)
[2019-10-13] MEDS ORDERED: ARIPiprazole 2 MG TAB As Ordered ONE (21:14)
[2019-10-13] MEDS ORDERED: traZODone 50 MG TAB As Ordered ONE (21:15)
[2019-10-13] MEDS ORDERED: ASPIRIN 81 MG ENTERIC TAB As Ordered ONE (21:15)
[2019-10-14] MEDS ORDERED: metFORMIN (GLUCOPHAGE) 500 MG TAB As Ordered ONE (07:57)
[2019-10-14] MEDS ORDERED: busPIRone 10 MG TAB As Ordered ONE ×2 (07:57→20:18)
[2019-10-14] MEDS ORDERED: SERTRALINE HCL 25 MG TABLET As Ordered ONE (08:00)
[2019-10-14] MEDS ORDERED: ATORVASTATIN 10 MG TAB As Ordered ONE (08:00)
[2019-10-14] MEDS ORDERED: lamoTRIgine 100MG TAB As Ordered ONE (08:00)
[2019-10-14] MEDS ORDERED: OMEPRAZOLE 20 MG CAP As Ordered ONE ×2 (08:01→20:19)
[2019-10-14] MEDS ORDERED: MAGNESIUM OXIDE 400 MG TAB (MAG-OX) As Ordered ONE ×2 (08:01→20:19)
[2019-10-14] MEDS ORDERED: ASPIRIN 81 MG CHEW TABLET As Ordered ONE (08:01)
[2019-10-14] MEDS ORDERED: GABAPENTIN 100 MG CAP As Ordered ONE ×3 (08:03→20:18)
[2019-10-14] MEDS ORDERED: IRBESARTAN 150MG TAB ONE (13:00)
[2019-10-14] MEDS ORDERED: CALCIUM/VITAMIN D 500 MG TAB ONE (13:00)
[2019-10-14] MEDS ORDERED: FEBUXOSTAT 40 MG TABLET (ULORIC) ONE (13:00)
[2019-10-14] MEDS ORDERED: metFORMIN XR 500MG TAB *GLUCOPHAGE XR As Ordered ONE (17:14)
[2019-10-14] MEDS ORDERED: ARIPiprazole 2 MG TAB As Ordered ONE (20:18)
[2019-10-14] MEDS ORDERED: traZODone 50 MG TAB As Ordered ONE (20:19)
[2019-10-14] MEDS ORDERED: ASPIRIN 81 MG ENTERIC TAB As Ordered ONE (20:19)
[2019-10-15] MEDS ORDERED: metFORMIN XR 500MG TAB *GLUCOPHAGE XR As Ordered ONE ×2 (07:36→17:12)
[2019-10-15] MEDS ORDERED: PROPRANOLOL 10 MG TAB As Ordered ONE ×2 (07:47→14:00)
[2019-10-15] MEDS ORDERED: ATORVASTATIN 10 MG TAB As Ordered ONE (09:35)
[2019-10-15] MEDS ORDERED: OMEPRAZOLE 20 MG CAP As Ordered ONE (09:36)
[2019-10-15] MEDS ORDERED: busPIRone 10 MG TAB As Ordered ONE (09:36)
[2019-10-15] MEDS ORDERED: lamoTRIgine 100MG TAB As Ordered ONE (09:36)
[2019-10-15] MEDS ORDERED: GABAPENTIN 100 MG CAP As Ordered ONE ×2 (09:36→15:34)
[2019-10-15] MEDS ORDERED: SERTRALINE HCL 25 MG TABLET As Ordered ONE (09:36)
[2019-10-15] MEDS ORDERED: ASPIRIN 81 MG CHEW TABLET As Ordered ONE (09:37)
[2019-10-15] MEDS ORDERED: ACETAMINOPHEN TAB 650MG DOSE (2X325MG) PO PRN (15:00)
[2019-10-15] MEDS ORDERED: MOM 30ML SUSPENSION UDC PO PRN (15:00)
[2019-10-15] MEDS ORDERED: TRAZ-189 PO (15:05)
[2019-10-15] MEDS ORDERED: METF-838 PO (15:05)
[2019-10-15] MEDS ORDERED: CALC1TAB26 PO (15:05)
[2019-10-15] MEDS ORDERED: ASPI-161 PO (15:05)
[2019-10-15] MEDS ORDERED: MAALOX 30 ML SUSP *UDC PO PRN (15:15)
[2019-10-15] MEDS: ASPIRIN 81 MG CHEW TABLET PO SCH (20:02)
[2019-10-15] MEDS: GABAPENTIN 100 MG CAP PO SCH (20:02)
[2019-10-15] MEDS: IRBESARTAN 150MG TAB PO SCH (20:02)
[2019-10-15] MEDS: busPIRone 10 MG TAB PO SCH (20:02)
[2019-10-15] MEDS: traZODone 50 MG TAB PO SCH (20:02)
[2019-10-15] MEDS: MAGNESIUM OXIDE 400 MG TAB (MAG-OX) PO SCH (20:02)
[2019-10-15] MEDS: ARIPiprazole 2 MG TAB PO SCH (20:02)
[2019-10-15] MEDS: OMEPRAZOLE 20 MG CAP PO SCH (20:03)
[2019-10-16 06:24] VITALS: BP 135/64
[2019-10-16] MEDS: metFORMIN XR 500MG TAB *GLUCOPHAGE XR PO SCH ×2 (07:50→17:11)
[2019-10-16] MEDS: lamoTRIgine 100MG TAB PO SCH (08:56)
[2019-10-16] MEDS: OMEPRAZOLE 20 MG CAP PO SCH ×2 (08:56→21:08)
[2019-10-16] MEDS: ATORVASTATIN 10 MG TAB PO SCH (08:57)
[2019-10-16] MEDS: SERTRALINE HCL 25 MG TABLET PO SCH (08:57)
[2019-10-16] MEDS: CALCIUM/VITAMIN D 500 MG TAB PO SCH (08:57)
[2019-10-16] MEDS: busPIRone 10 MG TAB PO SCH ×2 (08:57→21:11)
[2019-10-16] MEDS: GABAPENTIN 100 MG CAP PO SCH ×3 (08:57→21:10)
[2019-10-16] MEDS: FEBUXOSTAT 40 MG TABLET (ULORIC) PO SCH (08:57)
[2019-10-16] MEDS: PROPRANOLOL 10 MG TAB PO PRN (12:43)
[2019-10-16 16:49] VITALS: BP 139/80
[2019-10-16] MEDS: MAGNESIUM OXIDE 400 MG TAB (MAG-OX) PO SCH (21:07)
[2019-10-16] MEDS: PILL CUTTER 1 EACH XX PRN (21:07)
[2019-10-16] MEDS: IRBESARTAN 150MG TAB PO SCH (21:10)
[2019-10-16] MEDS: traZODone 50 MG TAB PO SCH (21:10)
[2019-10-16] MEDS: ASPIRIN 81 MG CHEW TABLET PO SCH (21:10)
[2019-10-16] MEDS: ARIPiprazole 2 MG TAB PO SCH (21:12)
[2019-10-17] MEDS: PROPRANOLOL 10 MG TAB PO PRN ×2 (06:04→20:47)
[2019-10-17 06:56] VITALS: BP 142/78
[2019-10-17] MEDS: lamoTRIgine 100MG TAB PO SCH (07:36)
[2019-10-17] MEDS: ATORVASTATIN 10 MG TAB PO SCH (07:36)
[2019-10-17] MEDS: GABAPENTIN 100 MG CAP PO SCH ×3 (07:36→20:50)
[2019-10-17] MEDS: SERTRALINE HCL 25 MG TABLET PO SCH (07:36)
[2019-10-17] MEDS: CALCIUM/VITAMIN D 500 MG TAB PO SCH (07:36)
[2019-10-17] MEDS: FEBUXOSTAT 40 MG TABLET (ULORIC) PO SCH (07:36)
[2019-10-17] MEDS: busPIRone 10 MG TAB PO SCH ×2 (07:37→20:47)
[2019-10-17] MEDS: OMEPRAZOLE 20 MG CAP PO SCH ×2 (07:37→20:45)
[2019-10-17] MEDS: metFORMIN XR 500MG TAB *GLUCOPHAGE XR PO SCH ×2 (07:37→17:04)
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
[2019-10-17 18:00] VITALS: BP 161/75
[2019-10-17] MEDS: traZODone 50 MG TAB PO SCH (20:45)
[2019-10-17] MEDS: IRBESARTAN 150MG TAB PO SCH (20:49)
[2019-10-17] MEDS: ASPIRIN 81 MG CHEW TABLET PO SCH (20:49)
[2019-10-17] MEDS: MAGNESIUM OXIDE 400 MG TAB (MAG-OX) PO SCH (20:49)
[2019-10-17] MEDS: ARIPiprazole 2 MG TAB PO SCH (20:59)
[2019-10-18 07:20] VITALS: BP 160/80
[2019-10-18] MEDS: metFORMIN XR 500MG TAB *GLUCOPHAGE XR PO SCH ×2 (07:54→17:13)
[2019-10-18] MEDS: PROPRANOLOL 10 MG TAB PO PRN ×2 (07:59→21:05)
[2019-10-18] MEDS: OMEPRAZOLE 20 MG CAP PO SCH ×2 (08:45→21:05)
[2019-10-18] MEDS: GABAPENTIN 100 MG CAP PO SCH ×3 (08:46→21:04)
[2019-10-18] MEDS: busPIRone 10 MG TAB PO SCH ×2 (08:46→21:03)
[2019-10-18] MEDS: CALCIUM/VITAMIN D 500 MG TAB PO SCH (08:46)
[2019-10-18] MEDS: ATORVASTATIN 10 MG TAB PO SCH (08:46)
[2019-10-18] MEDS: lamoTRIgine 100MG TAB PO SCH (08:46)
[2019-10-18] MEDS: SERTRALINE HCL 25 MG TABLET PO SCH (08:46)
[2019-10-18] MEDS: FEBUXOSTAT 40 MG TABLET (ULORIC) PO SCH (08:47)
--- NOTE | 2019-10-18 12:46 | MHIPNPDOC ---
[facility] Progress Note Progress Note DATE OF SERVICE: 10/18/19 HISTORY: Patient is a 74 year old , retired Male who was brought to [facility] by his for severe anxiety. VITAL SIGNS: See below. NEW TEST RESULTS: CURRENT MEDICATIONS: See below. MENTAL STATUS EXAMINATION: Patient is a 74 year old male, who was brought in to the hospital for severe anxiety. He reports that last night was the first good night's rest that he has had in a long time. He states that he has had some improvement in anxiety. During his individual session, he reported that he had increase in anxiety and s ubsequent depression due to COVID. Reporting that COVID caused his mental instability due to being quarantined to home, while he is a very social person. He reports that during the height of the pandemic he was very isolative, withdrawn and very depressed. His was added to the discussion via phone as we have done since the start of his admission, she reports that he appears over the phone to have some improvement in his speech and his report of his evening and today. She again expressed concern about his medications and wanting to continue with Dr. Oconnell for outpatient services along with cognitive behavioral therapy. Patient reports that his daughter his researching places for further hospitalization. He reports that she made recommendation of a place in [place], [place]. I reinforced with the patient that he is improving and that the need for hospitalization is very low. Patient feels that discharge today is premature. He reports continued anxiety but is also reporting that he is improving, having taken Propranolol along with his bedtime medications may have helped him tremendously with his sleep. He did, however, report that he started to lie down this morning and he became anxious, ruminative and had mild racing thoughts. He then made himself go to a group therapy session. Speech: Is spontaneous, fluid and conversant. Language skills are Thought processes including: Reality based, linear and goal oriented Thought content: He is negative for any abnormal thought content. He is not reporting and is not observed with jack, psychosis, delusions or auditory or visual hallucinations Description of abnormal or psychotic thoughts: None Judgment: Good Insight: Good Orientation: Alert and oriented x [address] person, [address], time and situation Recent and remote memory: Intact Attention span and concentration: Good Language: Good Fund of knowledge: Good Mood: Anxious. Affect: Full range DIAGNOSES: 1. Major Depressive Disorder, Recurrent, Moderate 2. Generalized Anxiety Disorder 3. Obsessive Compulsive Disorder ASSESSMENT: Patient is stabilizing but reports that he has only had one day of good sleep and continues to have anxiety intermittently throughout the day, he is pleasant and cooperative in his individual session and engaged in group therapy. MANAGEMENT PLAN: Discharge on Monday if patient is reporting stable mood, decreased anxiety attacks. TIME SPENT: 50 minutes. Vital Signs Vital Signs Date Time Temp Pulse Resp B/P (MAP) Pulse Ox O2 Delivery O2 Flow Rate FiO2 10/18/19 07:59 64 156/80 10/18/19 07:20 98.2 14 98 Room Air Current Medications Current Medications Medications (Trade) Dose Ordered Sig/Jan Route PRN Reason Start Time Stop Time Status Last Admin Dose Admin Acetaminophen (Tylenol Tab) 650 mg Q6HP PRN PO HEADACHE/INDIGESTION 10/15/19 15:00 Al Hydrox/Mg Hydrox/Simethicone (Mylanta) 30 ml Q4HP PRN PO HEARTBURN/INDIGESTION 10/15/19 15:15 Aripiprazole (AbiLIFY) 2 mg QHS PO 10/15/19 21:00 10/17/19 20:59 Aspirin (Aspirin Chewable) 81 mg QHS PO 10/15/19 21:00 10/17/19 20:49 Atorvastatin Calcium (Lipitor) 10 mg DAILY PO 10/16/19 09:00 10/18/19 08:46 Buspirone HCl (Buspar) 10 mg BID PO 10/15/19 21:00 10/18/19 08:46 Calcium/Vitamin D (Oscal D) 500 mg DAILY PO 10/16/19 09:00 10/18/19 08:46 Febuxostat (Uloric) 40 mg DAILY PO 10/16/19 09:00 10/18/19 08:47 Gabapentin (Neurontin) 100 mg TID PO 10/15/19 21:00 10/17/19 12:51 DC 10/17/19 07:36 Gabapentin (Neurontin) 200 mg TID PO 10/17/19 16:00 10/18/19 08:46 Home Med (Med Rec Complete!) ASDIRECTED XX 10/15/19 15:15 10/15/19 15:12 DC Irbesartan (Avapro) 75 mg QHS PO 10/15/19 21:00 10/17/19 20:49 Lamotrigine (LaMICtal) 100 mg DAILY PO 10/16/19 09:00 10/18/19 08:46 Magnesium Hydroxide (Milk Of Magnesia) 30 ml DAILYPRN PRN PO CONSTIPATION 10/15/19 15:00 10/15/19 20:04 Magnesium Oxide (Mag-Ox) 400 mg QHS PO 10/15/19 21:00 10/17/19 20:49 Metformin HCl (Glucophage Xr) 500 mg BIDWM PO 10/16/19 08:00 10/18/19 07:54 Omeprazole (PriLOSEC) 40 mg BID PO 10/15/19 21:00 10/18/19 08:45 Propranolol HCl (Inderal) 5 mg TID PRN PO ANXIETY/PANIC ATTACKS 10/15/19 15:15 10/18/19 07:59 Sertraline HCl (Zoloft) 25 mg DAILY PO 10/16/19 09:00 10/18/19 08:46 Trazodone HCl (Desyrel) 150 mg QHS PO 10/15/19 21:00 10/17/19 20:45 Allergies Coded Allergies: iodine (Verified Allergy, Severe, anaphylaxis, 07/15/19) Penicillins (Verified Allergy, Intermediate, hives, 07/15/19) SEAFOOD (Unverified Allergy, Unknown, ANAPHYLAXIS, 04/06/16) NIA SWARTZ NP Oct 18, 2019 12:46
[2019-10-18 16:00] VITALS: BP 140/80
[2019-10-18] MEDS ORDERED: IBUPROFEN 600MG TAB PO PRN (20:45)
[2019-10-18] MEDS: ARIPiprazole 2 MG TAB PO SCH (20:59)
[2019-10-18] MEDS: ASPIRIN 81 MG CHEW TABLET PO SCH (21:01)
[2019-10-18] MEDS: traZODone 50 MG TAB PO SCH (21:03)
[2019-10-18] MEDS: IRBESARTAN 150MG TAB PO SCH (21:03)
[2019-10-18] MEDS: BACTRIM 160MG/800MG DS TAB PO SCH (21:03)
[2019-10-18] MEDS: MAGNESIUM OXIDE 400 MG TAB (MAG-OX) PO SCH (21:04)
[2019-10-18] MEDS: PILL CUTTER 1 EACH XX PRN (21:07)
--- NOTE | 2019-10-18 21:24 | IPNPDOC ---
Date Seen The patient was seen on 10/18/19. Progress Note I was called to [facility] to assess patient's new complaint of a ruptured blister on the L foot. SUBJECTIVE: Denies fevers, chills, chest pain. Reports pain to palpation at the site of the ruptured blister. OBJECTIVE PHYSICAL EXAMINATION: VITAL SIGNS: Please see below. GENERAL: NAD HEENT: PERRLA CARDIOVASCULAR: RRR, normal S1, S2. RESPIRATORY: CTA. ABDOMINAL: soft, non tedner EXTREMITIES: marked swelling of entire L foot. Warm to touch, mild erythema. Plantar surface of left 1st metatarsal head - rupture cystic structure, with mil d surrounding erythema ~3 cm in diameter. Pulses 2+ bilaterally. Serosanguinous discharge. NEUROLOGICAL: no focal deficits PSYCHOLOGICAL: calm, cooperative. LABORATORY DATA, IMAGING STUDIES, MICROBIOLOGY: Please see below. ASSESSMENT AND PLAN: this is a 74 yo M admitted to [facility] due to severe anxiety. Denies hx of DM2. Concern for developing cellulitis at site of ruptured blister on head of 1st L metatarsal. Describes purulence 1 day ago. PROBLEMS: 1. LLE cellulitis (non purulent): No concern for deep tissue infection. Bactrim DS 1 tab BID for 7 days. ANTONIO hose. Ibuprofen 600 mg TID prn for pain inflammation. PCP follow up on DC from [facility]. Please call again as necessary. VS, I&O, 24H, Fishbone Vital Signs/I&O Vital Signs Date Time Temp Pulse Resp B/P (MAP) Pulse Ox O2 Delivery O2 Flow Rate FiO2 10/18/19 21:05 80 140/80 10/18/19 16:00 98.1 16 10/18/19 07:20 98 Room Air LORNA WEAVER MD Oct 18, 2019 21:24
[2019-10-19 06:23] VITALS: BP 142/76
[2019-10-19] MEDS: PILL CUTTER 1 EACH XX PRN ×2 (07:48→20:42)
[2019-10-19] MEDS: metFORMIN XR 500MG TAB *GLUCOPHAGE XR PO SCH ×2 (07:49→17:14)
[2019-10-19] MEDS: PROPRANOLOL 10 MG TAB PO PRN ×2 (07:50→20:47)
[2019-10-19] MEDS: CALCIUM/VITAMIN D 500 MG TAB PO SCH (08:56)
[2019-10-19] MEDS: GABAPENTIN 100 MG CAP PO SCH ×3 (08:56→20:43)
[2019-10-19] MEDS: FEBUXOSTAT 40 MG TABLET (ULORIC) PO SCH (08:56)
[2019-10-19] MEDS: SERTRALINE HCL 25 MG TABLET PO SCH (08:56)
[2019-10-19] MEDS: OMEPRAZOLE 20 MG CAP PO SCH ×2 (08:56→20:45)
[2019-10-19] MEDS: busPIRone 10 MG TAB PO SCH ×2 (08:56→20:43)
[2019-10-19] MEDS: BACTRIM 160MG/800MG DS TAB PO SCH ×2 (08:57→20:43)
[2019-10-19] MEDS: ATORVASTATIN 10 MG TAB PO SCH (08:57)
[2019-10-19] MEDS: lamoTRIgine 100MG TAB PO SCH (08:57)
[2019-10-19] MEDS ORDERED: ONDANSETRON 4 MG ORAL DISINTEGRATING TAB SL ONE (13:30)
[2019-10-19 16:13] VITALS: BP 135/66
[2019-10-19] MEDS: IRBESARTAN 150MG TAB PO SCH (20:42)
[2019-10-19] MEDS: ARIPiprazole 2 MG TAB PO SCH (20:43)
[2019-10-19] MEDS: traZODone 50 MG TAB PO SCH (20:45)
[2019-10-19] MEDS: ASPIRIN 81 MG CHEW TABLET PO SCH (20:45)
[2019-10-19] MEDS: MAGNESIUM OXIDE 400 MG TAB (MAG-OX) PO SCH (20:45)
[2019-10-20] MEDS: PROPRANOLOL 10 MG TAB PO PRN ×2 (06:22→21:00)
[2019-10-20 06:45] VITALS: BP 130/64
[2019-10-20] MEDS: metFORMIN XR 500MG TAB *GLUCOPHAGE XR PO SCH ×2 (07:04→17:08)
[2019-10-20] MEDS: SERTRALINE HCL 25 MG TABLET PO SCH (08:39)
[2019-10-20] MEDS: CALCIUM/VITAMIN D 500 MG TAB PO SCH (08:39)
[2019-10-20] MEDS: GABAPENTIN 100 MG CAP PO SCH ×3 (08:39→21:02)
[2019-10-20] MEDS: busPIRone 10 MG TAB PO SCH ×2 (08:39→21:01)
[2019-10-20] MEDS: FEBUXOSTAT 40 MG TABLET (ULORIC) PO SCH (08:39)
[2019-10-20] MEDS: lamoTRIgine 100MG TAB PO SCH (08:39)
[2019-10-20] MEDS: BACTRIM 160MG/800MG DS TAB PO SCH ×2 (08:40→20:54)
[2019-10-20] MEDS: OMEPRAZOLE 20 MG CAP PO SCH ×2 (08:40→20:58)
[2019-10-20] MEDS: ATORVASTATIN 10 MG TAB PO SCH (08:40)
[2019-10-20 16:25] VITALS: BP 138/82
[2019-10-20] MEDS: PILL CUTTER 1 EACH XX PRN (20:54)
[2019-10-20] MEDS: traZODone 50 MG TAB PO SCH (20:58)
[2019-10-20] MEDS: IRBESARTAN 150MG TAB PO SCH (20:58)
[2019-10-20] MEDS: ASPIRIN 81 MG CHEW TABLET PO SCH (21:00)
[2019-10-20] MEDS: ARIPiprazole 2 MG TAB PO SCH (21:01)
[2019-10-20] MEDS: MAGNESIUM OXIDE 400 MG TAB (MAG-OX) PO SCH (21:01)
[2019-10-21 06:15] VITALS: BP 138/70
[2019-10-21] MEDS: metFORMIN XR 500MG TAB *GLUCOPHAGE XR PO SCH (07:57)
[2019-10-21] MEDS: SERTRALINE HCL 25 MG TABLET PO SCH (08:56)
[2019-10-21] MEDS: OMEPRAZOLE 20 MG CAP PO SCH (08:56)
[2019-10-21] MEDS: CALCIUM/VITAMIN D 500 MG TAB PO SCH (08:56)
[2019-10-21] MEDS: BACTRIM 160MG/800MG DS TAB PO SCH (08:56)
[2019-10-21] MEDS: lamoTRIgine 100MG TAB PO SCH (08:56)
[2019-10-21] MEDS: GABAPENTIN 100 MG CAP PO SCH ×2 (08:56→15:11)
[2019-10-21] MEDS: FEBUXOSTAT 40 MG TABLET (ULORIC) PO SCH (08:56)
[2019-10-21] MEDS: busPIRone 10 MG TAB PO SCH (08:56)
[2019-10-21] MEDS: ATORVASTATIN 10 MG TAB PO SCH (08:56)
[2019-10-21 08:58] VITALS: BP 138/70
[2019-10-21] MEDS: PROPRANOLOL 10 MG TAB PO PRN (08:58)
[2019-10-21] MEDS ORDERED: SERT25TA21 PO (12:31)
[2019-10-21] MEDS ORDERED: FEBU40TA2 PO (12:31)
[2019-10-21] MEDS ORDERED: SULF1TAB93 PO (12:31)
[2019-10-21] MEDS ORDERED: LAMI1TAB7 PO (12:31)
[2019-10-21] MEDS ORDERED: GABA-1171 PO (12:31)
[2019-10-21] MEDS ORDERED: BUSP10TA PO (12:31)
[2019-10-21] MEDS ORDERED: ABIL1TAB13 PO (12:31)
[2019-10-21] MEDS ORDERED: PROP10TA56 PO (12:31)
--- NOTE | 2019-10-21 12:49 | MHDSPDOC ---
[facility] Discharge Summary Discharge Summary DATE OF ADMISSION: Oct 12, 2019 at 22:00 DATE OF DISCHARGE: October 21, 2019 1241 DISCHARGE DIAGNOSES: 1. Generalized Anxiety Disorder 2. Major Depressive Disorder, Recurrent, Moderate 3. Unspecified Trauma and Stressor Disorder REASON FOR ADMISSION: Patient was brought in by his who reported the patient to have extreme anxiety. He had reported depression, an severe increase in anxiety and fleeting suicidal ideation. Patient was reporting depressive symptoms and it appears that he was suffering from discontinuation syndrome from Latuda, concurrently during his admission patient had reported to me that he was taking Benadryl and allergy medications for sleep x several weeks. This may have caused anticholinergic toxicity thus the increase anxiety, agitation, fatigue, at times he was confused. His had reported that he had "eyes that of a wild man." He reported being very dehydrated. CONSULTANTS INVOLVED: Please see Dr. Cintron's consultation report dated 10/18/19. TREATMENT AND PROGRESS ON THE UNIT : Patient was afforded: 1) Individual Therapy, 2) Group Therapy, 3)Psychopharmacologic management, 4)Liaison between patient's for information conducted by social work department with the patient and the family for the purpose of education and discharge planning. HOSPITAL COURSE: Patient was started on Gabapentin 100 mg three times daily which was increased to 200 mg three times daily as he reported continued anxiety. Buspar was continued from patient's home medication regimen. Zoloft 25 mg daily, Abilify 2 mg to augment the Zoloft and Propranolol 5 mg three times daily PRN for anxiety. Patient was cooperative and pleasant in the milieu and with peers. He reported that he was having some difficulty with sleep. He had realized that taking Propranolol 5 mg before bed was very helpful in allowing him to get adequate rest. Prior to this, he reported racing thoughts. DISCHARGE ASSESSMENT: Patient is psychiatrically stable for discharge. He reports minimal depression and anxiety symptoms. MENTAL STATUS EXAMINATION ON DISCHARGE: Patient is a 74-year old , retired male, who is reporting decreased anxiety and depressive symptoms Speech is Spontaneous, Conversant Language skills are Good Thought processes including: Linear and Goal oriented Thought content: Negative for psychosis, jack, delusional thoughts, auditory or visual hallucinations Abstract reasoning, and computation: Good Description of associations: Negative Description of abnormal or psychotic thoughts: Negative Judgment: Good Insight: Good Orientation to Alert and oriented x 3 Recent and remote memory: Good/Intact Attention span and concentration: Good Language: Good Fund of knowledge: Patient is well-educated Mood: Euthymic Affect: Euthymic MEDICATIONS ON DISCHARGE: Please see medication list See Medication Reconcilation PLAN/FOLLOWUP ARRANGEMENTS: See [employer] Clerk's documentation. Patient wants to follow up with Dr. Oconnell at [facility]. Patient will have PCP and follow up with him for wound care of foot if necessary The amount of time spent in the coordination of care for this patient was approximately 40 minutes. Patient's was on phone and we reviewed his medications, dose, route and frequency. Patient reports that he will follow treatment plan and will maintain compliance. Patient and were satisfied with care. He is motivated for his outpatient services to be continued with Dr. Oconnell and feels that cognitive therapy will be helpful along with medication management. Vital Signs/I&Os Vital Signs Date Time Temp Pulse Resp B/P (MAP) Pulse Ox O2 Delivery O2 Flow Rate FiO2 10/21/19 08:58 78 138/70 10/21/19 06:15 98.5 18 10/19/19 06:23 Room Air 10/18/19 07:20 98 Medications Scheduled Aripiprazole (Abilify) 2 Mg Tablet, 2 MG PO QHS for Augment for Zoloft, #7 Aspirin (Aspirin EC) 81 Mg Tablet.dr, 81 MG PO QHS for . , (Reported) Atorvastatin Calcium (Atorvastatin Calcium) 10 Mg Tab, 10 MG PO QHS for . , (Reported) B-Complex with Vitamin C (Vitamin B Complex-Vitamin C) 1 Each Tablet, 1 TAB PO DAILY for . , (Reported) Buspirone HCl (Buspirone HCl) 10 Mg Tab, 10 MG PO BID for Anxiety, #7 Calcium Carbonate/Vitamin D3 (Calcium 600-Vit D3 800 Tablet) 1 Each Tablet, 1 TAB PO QHS for . , (Reported) Febuxostat (Febuxostat) 40 Mg Tablet, 40 MG PO DAILY for treats uric acid, #7 Gabapentin (Gabapentin) 100 Mg Capsule, 200 MG PO TID for Anxiety, #21 Irbesartan (Irbesartan) 75 Mg Tablet, 75 MG PO QHS for . , (Reported) Lamotrigine (Lamictal) 100 Mg Tab, 100 MG PO QHS for Mood Stabilization, #7 Magnesium Oxide (Magnesium) 400 Mg Capsule, 400 MG PO QHS for . , (Reported) Metformin HCl (Metformin HCl ER) 500 Mg Tab.er.24h, 500 MG PO BIDWM for . , (Reported) Omeprazole (Omeprazole) 40 Mg Capsule.dr, 40 MG PO BID for . , (Reported) Sertraline HCl (Sertraline HCl) 25 Mg Tablet, 25 MG PO DAILY for Antidepression, #7 Sulfamethoxazole/Trimethoprim (Sulfamethoxazole-Tmp Ds Tablet) 1 Each Tablet, 1 TAB PO BID for antibiotic for Foot, #7 Trazodone HCl (Trazodone HCl) 100 Mg Tablet, 100 MG PO QHS for . , (Reported) Scheduled PRN Propranolol HCl (Propranolol HCl) 10 Mg Tablet, 5 MG PO TID PRN for ANXIETY/PANIC ATTACKS, #21 Allergies Coded Allergies: iodine (Verified Allergy, Severe, anaphylaxis, 07/15/19) Penicillins (Verified Allergy, Intermediate, hives, 07/15/19) SEAFOOD (Unverified Allergy, Unknown, ANAPHYLAXIS, 04/06/16) NIA SWARTZ NP Oct 21, 2019 12:49
[2019-11-25 14:59] LABS: BASO % 0.3 % (0.0-1.0); EOS # 0.1 10^3/uL (0.0-0.5); EOS % 0.6 % (0.0-3.0); HEMATOCRIT 47.8 % (42.0-52.0); HEMOGLOBIN 16.4 g/dl (13.5-17.5); LYMPH % 8.2 % (24.0-44.0); MEAN CORPUSCULAR HGB CONC 34.3 g/dl (32.0-36.5); MEAN CORPUSCULAR VOLUME 90.4 fl (80.0-96.0); MONO # 0.9 10^3/uL (0.0-0.8); MONO % 7.2 % (0.0-5.0); NEUTROPHILS # 10.2 10^3/uL (1.5-8.5); NEUTROPHILS % 83.4 % (36.0-66.0); PLATELET COUNT, AUTOMATED 280 10^3/uL (150-450); RED BLOOD COUNT 5.29 10^6/uL (4.30-6.10); WHITE BLOOD COUNT 12.3 10^3/uL (4.0-10.0)
--- NOTE | 2019-12-02 10:29 | MHHPE ---
DATE OF ADMISSION: 10/13/2019 HISTORY OF PRESENT ILLNESS: The patient was brought to the emergency room yesterday, 10/12/2019, and he complained of extreme anxiety. He also said that he had been sleeping for about 5 days and he mentioned that he has fleeting suicidal ideation but that he could control the suicidal thoughts because he had had a friend who had shot himself and he would never do that to his family. He mentioned that he felt that his mind was constantly racing, his thoughts would not stop. The patient also reported poor concentration and his reported that he had seen Dr. Gaffney for several years and that his medications were constantly changed. Apparently, according to what his said, on 08/26/2019 the patient was taken to [facility] for a possible stroke and they did all sorts of test on him but they concluded that it was not a stroke and they thought it could be a seizure. As a result, Dr. Gaffney stopped his Latuda and his current symptoms of extreme anxiety started shortly after that. The patient has been on Seroquel in the past but he stopped taking it because it was too sedating. He also had been taking Klonopin and Xanax in the past, but he said that he stopped taking it because it was too much, however he does not remember how long ago he stopped them. His reported that he really did not want to kill himself but he was afraid that he would end up hurting himself because of his anxiety. Today, 10/13/2019, the patient reports that his anxiety has been terrible, he reports that in the past he has had panic attacks and that his anxiety has gotten worse since he stopped taking Latuda. He says he did not know about discontinuation syndrome and Latuda was stopped abruptly. He says that he was receiving samples of Latuda from Dr. Gaffney. He reports that he never knew what his real diagnosis is and he constantly asked Dr. Gaffney if he was bipolar but Dr. Gaffney told him that he did not have bipolar disorder. The patient tells me today that his anxiety is a little bit decreased compared to how it was yesterday at the emergency room. The patient was started on Latuda 20 mg twice a day because this commercial lines underwriter thought that because he was having discontinuation syndrome that he probably should be started again on this medication, but he does not fill criteria for depression or bipolar disorder, therefore this medication will be discontinued again and he will be started on other medications. PAST PSYCHIATRIC HISTORY: As I mentioned above, he has been in treatment for several years with Dr. Gaffney, for anxiety and depression, and he always had thought that he has bipolar disorder. He mentioned a previous traumatic experience at age 16 when his mother of cancer and he saw her . He says that was very painful for him to deal with plus there were some family dynamics that were complicated for a young teenager to deal with. His sister was the only child born within his family in 150 years so it was highly celebrated when she was born and he felt left out which affected him too. He says his father was an alcoholic and this affected their relationship as well. MEDICAL HISTORY: The patient has hypertension, hyperlipidemia, diabetes, insomnia, and, as I mentioned before, depression and anxiety. FAMILY MEDICAL HISTORY: His mother of cancer. FAMILY PSYCHIATRIC HISTORY: His father was an alcoholic and, according to what the patient thinks, apparently anxiety and depression runs in the family, his one and only sister, he says, has the same issues that he has but worse. PSYCHIATRIC REVIEW OF SYSTEMS: The patient denies symptoms of jack prior or present, but he acknowledges symptoms of depression including lack of motivation, poor attention and concentration, decreased interest in activities that he used to enjoy, feelings of guilt, and hopelessness and helplessness that have been triggered by his anxiety. He denies active suicidal thoughts but reports fleeting suicidal ideation, and he says he will never act upon that because one of his friends committed suicide by shooting himself and he would not inflict the same pain on his own family. He would not want to hurt his family the way that his friend hurt his own family after he killed himself. Psychosis: The patient denies thought delusions, denies auditory, visual, or tactile hallucinations, and he is not responding to internal stimuli. Trauma: The patient was traumatized by his mothers and the family dynamics, he was traumatized by his fathers alcohol abuse and how he responded when he was under the influence to different members of the family. He denies nightmares or flashbacks at this time, but sometimes he has some intrusive thoughts. Anxiety: The patient reports high levels of anxiety, he says his mind does not stop from thinking all the time, he reports panic attacks, he has taken medications for that as well. PSYCHOSOCIAL HISTORY: The patient had one sister only. He grew up with mom and dad, mom and dad were . His mother when he was 16 years old and she of cancer. He remained living with his father and his sister was sent away with another relative so that they would be able to take care of her, she was only 5 years old when their mother . His father remarried and he felt betrayed because his father never talked to them about his plans of marrying his second and that marriage ended soon. The patient is currently , he feels supported by his , he denies legal problems. MENTAL STATUS EXAMINATION: The patient is alert and oriented times three, he is cooperative and pleasant. He is dressed in hospital clothes, he is very fidgety, he constantly moves in his chair. Eye contact is good and intense at times, thought process is linear and coherent, thought content is anxious, depressed, but is negative for suicidal thoughts or homicidal thoughts. Speech is fast but not pressured, spontaneous and fluent, normal in tone and volume. Mood and affect are anxious and mildly depressed. Insight and judgment are fair. ASSESSMENT: The patient has been under treatment for several years and apparently he has been receiving Latuda and many other medications that were discontinued somehow abruptly, specifically Latuda. I believe he has been suffering from discontinuation syndrome, but once I spoke with the patient he does not fulfill criteria for bipolar disorder. I will discontinue Latuda and I will start him on Zoloft 25 mg by mouth daily, Abilify 2 mg by mouth daily which I think is necessary to give Zoloft a boost because he is 74 years old and he cannot take high doses of antidepressants. I will start him on gabapentin 100 mg three times a day because it can help with anxiety in some patients and I will start propranolol 5 mg by mouth three times a day as needed for severe anxiety or for panic attacks. I will discontinue Klonopin 0.5 mg twice a day that I had indicated yesterday. DIAGNOSES: 1. Generalized anxiety disorder, severe. 2. Major depressive disorder, recurrent, moderate. 3. Unspecified trauma and stressor disorder. RECOMMENDATIONS: I believe that the patient needs therapy to deal with his history of trauma during childhood. At one time, he was attending [facility] and he saw Dr. Sy but he stopped going to therapy. I think it will be important for him to resume that type of treatment besides taking his medications. Will encourage him to attend groups and to seek support in nursing staff and his psychiatrist. Will followup. NANCI
[2020-01-05 11:48] LABS: ACETAMINOPHEN LEVEL < 2.0 UG/ML (10.0-30.0); ALBUMIN 4.3 GM/DL (3.2-5.2); ALT/SGPT 44 U/L (12-78); AMPHETAMINES LEVEL URINE NEGATIVE (NEGATIVE); BARBITURATES URINE NEGATIVE (NEGATIVE); BENZODIAZEPINES URINE NEGATIVE (NEGATIVE); BILIRUBIN,DIRECT 0.1 MG/DL (0.0-0.2); BILIRUBIN,TOTAL 0.6 MG/DL (0.2-1.0); BLOOD UREA NITROGEN 20 MG/DL (7-18); CALCIUM LEVEL 9.4 MG/DL (8.8-10.2); CANNABINOIDS URINE NEGATIVE (NEGATIVE); CARBON DIOXIDE LEVEL 23 MEQ/L (21-32); CHLORIDE LEVEL 110 MEQ/L (98-107); COCAINE METABOLITE URINE NEGATIVE (NEGATIVE); CREATININE FOR GFR 1.62 MG/DL (0.70-1.30); ETHYL ALCOHOL (ETHANOL) < 0.003 % (0.000-0.010); GLOMERULAR FILTRATION RATE 44.8 (>42); GLUCOSE, FASTING 92 MG/DL (70-100); METHADONE URINE NEGATIVE (NEGATIVE); OPIATES URINE NEGATIVE (NEGATIVE); PHENCYCLIDINE URINE NEGATIVE (NEGATIVE); POTASSIUM SERUM 4.8 MEQ/L (3.5-5.1); SALICYLATE LEVEL < 1.7 MG/DL (5.0-30.0); SODIUM LEVEL 141 MEQ/L (136-145); TOTAL PROTEIN 7.7 GM/DL (6.4-8.2)
== END 2019-10-21 16:30 | disposition home or self-care (01) | DRG 880 ==
LOC: M ED 13:06 → UNDOADMIN 22:00 → M PSY 22:00
PROVIDERS: ADMIT Psychiatry & Neurology Psychiatry; ATTEND Psychiatry & Neurology Psychiatry
DX: F41.1 Generalized anxiety disorder (principal); F33.1 Major depressive disorder, recurrent, moderate; L03.116 Cellulitis of left lower limb; Z79.899 Other long term (current) drug therapy; Z79.82 Long term (current) use of aspirin; Z88.0 Allergy status to penicillin; Z88.8 Allergy status to other drugs, medicaments and biological substances; Z91.013 Allergy to seafood

== ENCOUNTER → 2019-11-08 | Outpatient (REF) | payer MEDICARE, OTHER ==
[~2019-11-08] MED LIST changes: +ABIL1TAB13 PO; +ASPI-161 PO; +CALC1TAB26 PO; +FEBU40TA2 PO; +GABA-1171 PO; +METF-838 PO; +PROP10TA56 PO; +SERT25TA21 PO; +SULF1TAB93 PO; +TRAZ-189 PO
[2019-11-08 13:52] LABS: ALBUMIN 3.6 GM/DL (3.2-5.2); ALT/SGPT 39 U/L (12-78); BILIRUBIN,TOTAL 0.3 MG/DL (0.2-1.0); BLOOD UREA NITROGEN 19 MG/DL (7-18); CALCIUM LEVEL 9.3 MG/DL (8.8-10.2); CARBON DIOXIDE LEVEL 33 MEQ/L (21-32); CHLORIDE LEVEL 107 MEQ/L (98-107); CHOLESTEROL LEVEL 171 MG/DL (<200); CHOLESTEROL RISK RATIO 2.514 (<5); CREATININE FOR GFR 1.23 MG/DL (0.70-1.30); FREE T4 0.88 NG/DL (0.76-1.46); GLOMERULAR FILTRATION RATE > 60.0 (>42); GLUCOSE, FASTING 101 MG/DL (70-100); HDL CHOLESTEROL 68 MG/DL (>40); LDL CHOLESTEROL 80 MG/DL (<100); NON-HDL-C 103 MG/DL; POTASSIUM SERUM 5.5 MEQ/L (3.5-5.1); SODIUM LEVEL 142 MEQ/L (136-145); TOTAL PROTEIN 6.8 GM/DL (6.4-8.2); TRIGLYCERIDES LEVEL 113 MG/DL (<150)
== END ==
LOC: M LABDRAWC 11:48
PROVIDERS: ATTEND Family Medicine
DX: N18.3 Chronic kidney disease, stage 3 (moderate) (principal); I12.9 Hypertensive chronic kidney disease with stage 1 through stage 4 chronic kidney disease, or unspecified chronic kidney disease; Z12.5 Encounter for screening for malignant neoplasm of prostate
CPT/HCPCS: 36415; 80053; 80061; 84439; 84443; G0103

== ENCOUNTER → 2020-01-16 | Outpatient (REF) | payer MEDICARE, OTHER | LOC: M LAB REF 15:09 → EEVIPCON 15:09 | PROVIDERS: ATTEND Podiatrist | DX: M79.672 Pain in left foot (principal); L03.129 Acute lymphangitis of unspecified part of limb ==

== ENCOUNTER → 2020-02-06 | Outpatient (CLI) | payer SELFPAY | LOC: M LABSMTC 13:15 | PROVIDERS: ATTEND Pediatrics | DX: Z20.828 Contact with and (suspected) exposure to other viral communicable diseases (principal) ==

== ENCOUNTER → 2020-02-18 | Outpatient (REF) | payer MEDICARE, OTHER ==
[2020-02-18 12:14] LABS: BASO % 0.4 % (0.0-1.0); EOS # 0.2 10^3/uL (0.0-0.5); EOS % 2.5 % (0.0-3.0); HEMATOCRIT 49.1 % (42.0-52.0); HEMOGLOBIN 15.5 g/dl (13.5-17.5); LYMPH # 1.4 10^3/uL (1.5-5.0); MEAN CORPUSCULAR HGB CONC 31.6 g/dl (32.0-36.5); MEAN CORPUSCULAR VOLUME 91.9 fl (80.0-96.0); MONO # 0.7 10^3/uL (0.0-0.8); NEUTROPHILS # 5.2 10^3/uL (1.5-8.5); NEUTROPHILS % 68.8 % (36.0-66.0); PLATELET COUNT, AUTOMATED 214 10^3/uL (150-450); RED BLOOD COUNT 5.34 10^6/uL (4.30-6.10); WHITE BLOOD COUNT 7.5 10^3/uL (4.0-10.0)
[2020-02-18 12:47] LABS: TOTAL PROTEIN,RANDOM URINE 15.5 MG/DL (0.0-12.0)
[2020-02-18 15:36] LABS: HEMOGLOBIN A1c 5.9 %
== END ==
LOC: M SFHCCLAY 08:24
PROVIDERS: ATTEND Family Medicine
DX: E53.8 Deficiency of other specified B group vitamins (principal); R73.01 Impaired fasting glucose

== ENCOUNTER → 2020-06-02 | Outpatient (REF) | payer MEDICARE, OTHER ==
[~2020-06-02] MED LIST changes: +LISI10TA22 PO; -LISI10TA4 PO
[2020-06-02 12:01] LABS: HEMOGLOBIN A1c 5.7 %
[2020-06-02 12:09] LABS: ALBUMIN 3.8 GM/DL (3.2-5.2); ALT/SGPT 35 U/L (12-78); BILIRUBIN,TOTAL 0.3 MG/DL (0.2-1.0); BLOOD UREA NITROGEN 22 MG/DL (7-18); C REACTIVE PROTEIN QUANTITATIV 1.01 MG/DL (0.00-0.30); CALCIUM LEVEL 9.2 MG/DL (8.8-10.2); CARBON DIOXIDE LEVEL 29 MEQ/L (21-32); CHLORIDE LEVEL 105 MEQ/L (98-107); CHOLESTEROL LEVEL 145 MG/DL (<200); CHOLESTEROL RISK RATIO 2.543 (<5); CPK CREATINE PHOSPHOKINASE 176 U/L (39-308); CREATININE FOR GFR 1.21 MG/DL (0.70-1.30); FREE T4 0.92 NG/DL (0.76-1.46); GLOMERULAR FILTRATION RATE > 60.0 (>42); GLUCOSE, FASTING 105 MG/DL (70-100); HDL CHOLESTEROL 57 MG/DL (>40); LDL CHOLESTEROL 64 MG/DL (<100); NON-HDL-C 88 MG/DL; POTASSIUM SERUM 4.4 MEQ/L (3.5-5.1); SODIUM LEVEL 140 MEQ/L (136-145); TOTAL PROTEIN 6.7 GM/DL (6.4-8.2); TRIGLYCERIDES LEVEL 118 MG/DL (<150); URIC ACID 4.3 MG/DL (3.5-7.2)
== END ==
LOC: M SFHCCLAY 08:40
PROVIDERS: ATTEND Family Medicine
DX: R73.01 Impaired fasting glucose (principal); C61 Malignant neoplasm of prostate; M10.9 Gout, unspecified
CPT/HCPCS: 80053; 80061; 82550; 83036; 83525; 84439; 84443; 84550; 86140; G0103

== ENCOUNTER → 2020-06-08 | Outpatient (CLI) | payer MEDICARE, OTHER ==
--- NOTE | 2020-06-08 17:30 | REP ---
INDICATION: PNEUMONIA, UNSPECIFIED ORGANISM. COMPARISON: 05/16/2016 TECHNIQUE: PA and lateral FINDINGS: The superior mediastinal structures are midline. The cardiac silhouette is unremarkable in size, shape, and position. The diaphragmatic surfaces of the lungs are regular, and the costophrenic angles are clear. The pulmonary ribeiro are clear. The imaged osseous structures are intact. IMPRESSION: There is no acute cardiopulmonary disease. <Electronically signed by Nito Vaughn > 06/08/20 [id number]
== END ==
LOC: M RAD 17:05
PROVIDERS: ATTEND Family Medicine
DX: J18.9 Pneumonia, unspecified organism (principal)

== ENCOUNTER 2020-08-25 10:46 | Emergency (ER) | payer MEDICARE, OTHER ==
[~2020-08-25] VITALS: Ht 182.9 cm; Wt 88.6 kg
[~2020-08-25 10:46] MED LIST changes: +BACTDSTA PO; +OMEP40CA4 PO; -OMEP40CA97 PO; -SULF1TAB93 PO
[2020-08-25] MEDS ORDERED: GABA-1171 PO (11:05)
[2020-08-25] MEDS ORDERED: PROP10TA56 PO (11:05)
[2020-08-25] MEDS ORDERED: ZINC1TAB2 PO (11:05)
--- NOTE | 2020-08-25 11:15 | REP ---
INDICATION: worse MORAN, dizziness COMPARISON: 10/12/2019 TECHNIQUE: Axial noncontrast images from the skull base to the thoracic inlet with coronal reformations. This CT examination was performed using the following dose reduction techniques: Automated exposure control, adjustment of mA and/or kv according to the patient's size, and use of iterative reconstruction technique. FINDINGS: Atrophy with periventricular leukomalacia and microvascular ischemic changes are appreciated. The ventricles and sulci are symmetric. Dill-white differentiation is maintained. There is no evidence for acute intracranial hemorrhage, mass/mass effect, pathology or infarction. No extra-axial fluid collection. Calvarium is intact. Paranasal sinuses and mastoid air cells are clear. IMPRESSION: Atrophy and microvascular ischemic changes. No acute intracranial hemorrhage, infarction, or mass/mass effect. <Electronically signed by Jasvir Gaona > 08/25/20 [id number]
[2020-08-25] MEDS ORDERED: NS 1,000 ML IV ONE (11:45)
[2020-08-25] MEDS ORDERED: ACETAMINOPHEN 500 MG TAB PO ONE (11:45)
[2020-08-25] MEDS ORDERED: diphenhydrAMINE 50MG/ML VIAL (J1200) IV ONE (11:45)
[2020-08-25 11:57] LABS: BASO % 0.4 % (0.0-1.0); EOS # 0.1 10^3/uL (0.0-0.5); EOS % 1.4 % (0.0-3.0); HEMATOCRIT 47.1 % (42.0-52.0); HEMOGLOBIN 15.9 g/dl (13.5-17.5); LYMPH # 0.8 10^3/uL (1.5-5.0); LYMPH % 11.5 % (24.0-44.0); MEAN CORPUSCULAR HEMOGLOBIN 30.1 pg (27.0-33.0); MEAN CORPUSCULAR HGB CONC 33.8 g/dl (32.0-36.5); MEAN CORPUSCULAR VOLUME 89.2 fl (80.0-96.0); MONO # 0.6 10^3/uL (0.0-0.8); MONO % 7.8 % (2.0-8.0); NEUTROPHILS # 5.8 10^3/uL (1.5-8.5); NEUTROPHILS % 78.5 % (36.0-66.0); PLATELET COUNT, AUTOMATED 221 10^3/uL (150-450); RED BLOOD COUNT 5.28 10^6/uL (4.30-6.10); WHITE BLOOD COUNT 7.3 10^3/uL (4.0-10.0)
[2020-08-25] MEDS ORDERED: KETOROLAC 30 MG/ML 1ML VIAL IV ONE (12:00)
[2020-08-25] MEDS ORDERED: METOCLOPRAMIDE INJ 10MG/2ML VIAL (J2765 PER 1) IV ONE (12:00)
[2020-08-25 12:17] LABS: ERYTHROCYTE SEDIMENTATION RATE 6 mm/hr (0-20)
[2020-08-25 12:24] LABS: ALBUMIN 3.9 GM/DL (3.2-5.2); BILIRUBIN,TOTAL 0.6 MG/DL (0.2-1.0); C REACTIVE PROTEIN QUANTITATIV 0.33 MG/DL (0.00-0.30); CALCIUM LEVEL 9.3 MG/DL (8.8-10.2); CREATININE FOR GFR 1.3 MG/DL (0.70-1.30); GLOMERULAR FILTRATION RATE 57.8 (>42); POTASSIUM SERUM 4.4 MEQ/L (3.5-5.1); TOTAL PROTEIN 6.9 GM/DL (6.4-8.2)
[2020-08-25 14:30] VITALS: BP 130/64
== END 2020-08-25 15:02 | disposition home or self-care (01) ==
LOC: M ED 10:46
DX: R51.9 Headache, unspecified (principal); K21.9 Gastro-esophageal reflux disease without esophagitis; G47.33 Obstructive sleep apnea (adult) (pediatric); N18.30 Chronic kidney disease, stage 3 unspecified; Z79.84 Long term (current) use of oral hypoglycemic drugs; Z79.899 Other long term (current) drug therapy; Z88.0 Allergy status to penicillin; Z91.013 Allergy to seafood; Z91.89 Other specified personal risk factors, not elsewhere classified
CPT/HCPCS: 70450; 80053; 85025; 85652; 86140; 93041; 96361; 96374; 96375; 99284; J1200; J1885; J2765

== ENCOUNTER → 2020-09-29 | Outpatient (REF) | payer MEDICARE, OTHER ==
[~2020-09-29] MED LIST changes: -LATU40TA PO; +LATU40TA2 PO
[2020-09-29 13:18] LABS: BASO % 0.5 % (0.0-1.0); EOS # 0.1 10^3/uL (0.0-0.5); EOS % 2.1 % (0.0-3.0); HEMATOCRIT 46.6 % (42.0-52.0); LYMPH % 16.3 % (24.0-44.0); MEAN CORPUSCULAR HEMOGLOBIN 29.9 pg (27.0-33.0); MEAN CORPUSCULAR HGB CONC 32.2 g/dl (32.0-36.5); MEAN CORPUSCULAR VOLUME 92.8 fl (80.0-96.0); MONO # 0.6 10^3/uL (0.0-0.8); MONO % 9.7 % (2.0-8.0); NEUTROPHILS # 4.3 10^3/uL (1.5-8.5); NEUTROPHILS % 70.9 % (36.0-66.0); PLATELET COUNT, AUTOMATED 224 10^3/uL (150-450); RED BLOOD COUNT 5.02 10^6/uL (4.30-6.10); WHITE BLOOD COUNT 6.1 10^3/uL (4.0-10.0)
[2020-09-29 13:21] LABS: ALBUMIN 3.8 GM/DL (3.2-5.2); ALT/SGPT 44 U/L (12-78); BILIRUBIN,TOTAL 0.4 MG/DL (0.2-1.0); BLOOD UREA NITROGEN 22 MG/DL (7-18); CALCIUM LEVEL 8.9 MG/DL (8.8-10.2); CARBON DIOXIDE LEVEL 30 MEQ/L (21-32); CHLORIDE LEVEL 108 MEQ/L (98-107); CREATININE FOR GFR 1.12 MG/DL (0.70-1.30); FERRITIN 77 NG/ML (26-388); GLOMERULAR FILTRATION RATE > 60.0 (>42); GLUCOSE, FASTING 116 MG/DL (70-100); POTASSIUM SERUM 4.6 MEQ/L (3.5-5.1); SODIUM LEVEL 144 MEQ/L (136-145); TOTAL PROTEIN 6.8 GM/DL (6.4-8.2)
[2020-09-29 13:25] LABS: PTH INTACT 51.6 PG/ML (18.5-88.0); VITAMIN B12 LEVEL 692 PG/ML (247-911)
[2020-09-29 13:53] LABS: HEMOGLOBIN A1c 5.9 %
== END ==
LOC: M SFHCCLAY 08:30
PROVIDERS: ATTEND Family Medicine
DX: R73.01 Impaired fasting glucose (principal); E53.8 Deficiency of other specified B group vitamins; E55.9 Vitamin D deficiency, unspecified

== ENCOUNTER → 2020-10-28 | Outpatient (CLI) | payer MEDICARE, OTHER ==
[~2020-10-28] MED LIST changes: +LATU40TA PO; -LATU40TA2 PO
== END ==
LOC: M LABSMTC 09:12
PROVIDERS: ATTEND Pediatrics
DX: Z11.52 Encounter for screening for COVID-19 (principal)
CPT/HCPCS: C9803; U0003

== ENCOUNTER → 2021-02-01 | Outpatient (REF) | payer MEDICARE, OTHER ==
[2021-02-01 12:50] LABS: ALBUMIN 3.9 GM/DL (3.2-5.2); ALT/SGPT 41 U/L (12-78); BILIRUBIN,TOTAL 0.3 MG/DL (0.2-1.0); BLOOD UREA NITROGEN 21 MG/DL (7-18); CALCIUM LEVEL 9.2 MG/DL (8.8-10.2); CARBON DIOXIDE LEVEL 30 MEQ/L (21-32); CHLORIDE LEVEL 105 MEQ/L (98-107); CHOLESTEROL LEVEL 154 MG/DL (<200); CREATININE FOR GFR 1.25 MG/DL (0.70-1.30); GLOMERULAR FILTRATION RATE > 60.0 (>42); GLUCOSE, FASTING 124 MG/DL (70-100); HDL CHOLESTEROL 50 MG/DL (>40); LDL CHOLESTEROL 54 MG/DL (<100); MALB URINE SIEMENS 7.5 MG/L; MAU/CREAT RATIO 6.3 MCG/MG (0.0-30.0); NON-HDL-C 104 MG/DL; NT-PRO BNP 31 PG/ML (<125); POTASSIUM SERUM 4.6 MEQ/L (3.5-5.1); SODIUM LEVEL 140 MEQ/L (136-145); TRIGLYCERIDES LEVEL 248 MG/DL (<150)
== END ==
LOC: M SFHCCLAY 08:30
PROVIDERS: ATTEND Family Medicine
DX: E78.5 Hyperlipidemia, unspecified (principal); R73.01 Impaired fasting glucose; C61 Malignant neoplasm of prostate; Z12.5 Encounter for screening for malignant neoplasm of prostate
CPT/HCPCS: 80053; 80061; 82043; 83525; 83880; G0103

== ENCOUNTER → 2021-06-15 | Outpatient (REF) | payer MEDICARE, OTHER ==
[~2021-06-15] MED LIST changes: -LATU40TA PO; +LATU40TA2 PO
[2021-06-15 12:03] LABS: BASO % 0.6 % (0.0-1.0); EOS # 0.2 10^3/uL (0.0-0.5); EOS % 2.5 % (0.0-3.0); HEMATOCRIT 44.2 % (42.0-52.0); HEMOGLOBIN 14.5 g/dl (13.5-17.5); LYMPH # 1.1 10^3/uL (1.5-5.0); LYMPH % 15.7 % (24.0-44.0); MEAN CORPUSCULAR HEMOGLOBIN 29.5 pg (27.0-33.0); MEAN CORPUSCULAR HGB CONC 32.8 g/dl (32.0-36.5); MONO # 0.7 10^3/uL (0.0-0.8); NEUTROPHILS # 5.2 10^3/uL (1.5-8.5); NEUTROPHILS % 71.9 % (36.0-66.0); PLATELET COUNT, AUTOMATED 215 10^3/uL (150-450); RED BLOOD COUNT 4.91 10^6/uL (4.30-6.10); WHITE BLOOD COUNT 7.2 10^3/uL (4.0-10.0)
[2021-06-15 12:10] LABS: ALBUMIN 3.7 GM/DL (3.2-5.2); BILIRUBIN,TOTAL 0.7 MG/DL (0.2-1.0); CALCIUM LEVEL 8.8 MG/DL (8.8-10.2); CREATININE FOR GFR 1.28 MG/DL (0.70-1.30); GLOMERULAR FILTRATION RATE 58.6 (>42); POTASSIUM SERUM 4.6 MEQ/L (3.5-5.1); TOTAL PROTEIN 6.6 GM/DL (6.4-8.2); URIC ACID 3.5 MG/DL (3.5-7.2)
== END ==
LOC: M SFHCCLAY 08:20
PROVIDERS: ATTEND Family Medicine
DX: R73.01 Impaired fasting glucose (principal); N18.30 Chronic kidney disease, stage 3 unspecified; M10.9 Gout, unspecified; D50.9 Iron deficiency anemia, unspecified

== ENCOUNTER → 2021-11-12 | Outpatient (REF) | payer MEDICARE, OTHER ==
[2021-11-12 12:26] LABS: ALBUMIN 3.9 GM/DL (3.2-5.2); BILIRUBIN,TOTAL 0.4 MG/DL (0.2-1.0); CALCIUM LEVEL 9.4 MG/DL (8.8-10.2); CREATININE FOR GFR 1.3 MG/DL (0.70-1.30); GLOMERULAR FILTRATION RATE 57.4 (>42); MAGNESIUM LEVEL 2.5 MG/DL (1.8-2.4); POTASSIUM SERUM 4.4 MEQ/L (3.5-5.1); TOTAL PROTEIN 6.9 GM/DL (6.4-8.2)
[2021-11-12 12:34] LABS: HEMOGLOBIN A1c 6.1 %
[2021-11-12 12:37] LABS: MAU/CREAT RATIO 8.9 MCG/MG (0.0-30.0)
== END ==
LOC: M SFHCCLAY 08:26
PROVIDERS: ATTEND Family Medicine
DX: I10 Essential (primary) hypertension (principal); R73.01 Impaired fasting glucose

== ENCOUNTER → 2022-02-17 | Outpatient (REF) | payer MEDICARE, OTHER ==
[2022-02-17 16:04] LABS: HEMOGLOBIN A1c 5.5 % (4.0-6.0)
[2022-02-17 16:17] LABS: ALBUMIN 3.8 G/DL (3.2-5.2); ALKALINE PHOSPHATASE 76 U/L (46-116); ALT/SGPT 35 U/L (7.0-40); AST/SGOT 25 U/L (<34); BILIRUBIN,TOTAL 0.5 MG/DL (0.3-1.2); BLOOD UREA NITROGEN 22 MG/DL (9-23); CALCIUM LEVEL 9.3 MG/DL (8.3-10.6); CARBON DIOXIDE LEVEL 29 MMOL/L (20-31); CHLORIDE LEVEL 105 MMOL/L (98-107); CREATININE FOR GFR 1.24 MG/DL (0.70-1.30); GLOMERULAR FILTRATION RATE > 60.0 (>42); GLUCOSE, FASTING 92 MG/DL (74-106); POTASSIUM SERUM 4.5 MMOL/L (3.5-5.1); SODIUM LEVEL 141 MMOL/L (136-145); TOTAL PROTEIN 6.3 G/DL (5.7-8.2)
[2022-02-17 16:19] LABS: BASO % 0.5 % (0.0-1.0); EOS # 0.1 10^3/uL (0.0-0.5); EOS % 2.2 % (0.0-3.0); HEMATOCRIT 44.8 % (42.0-52.0); HEMOGLOBIN 14.3 g/dl (13.5-17.5); LYMPH # 1.2 10^3/uL (1.5-5.0); LYMPH % 18.7 % (24.0-44.0); MEAN CORPUSCULAR HEMOGLOBIN 29.5 pg (27.0-33.0); MEAN CORPUSCULAR HGB CONC 31.9 g/dl (32.0-36.5); MEAN CORPUSCULAR VOLUME 92.6 fl (80.0-96.0); MONO # 0.5 10^3/uL (0.0-0.8); MONO % 8.3 % (2.0-8.0); NEUTROPHILS # 4.5 10^3/uL (1.5-8.5); NEUTROPHILS % 69.8 % (36.0-66.0); PLATELET COUNT, AUTOMATED 194 10^3/uL (150-450); RED BLOOD COUNT 4.84 10^6/uL (4.30-6.10); WHITE BLOOD COUNT 6.4 10^3/uL (4.0-10.0)
[2022-02-17 16:26] LABS: FERRITIN 37.5 NG/ML (10.5-307.3)
[2022-02-17 16:29] LABS: VITAMIN B12 LEVEL 415 PG/ML (211-911)
[2022-02-17 16:33] LABS: URIC ACID 4.2 MG/DL (3.7-9.2)
== END ==
LOC: M SFHCCLAY 07:57
PROVIDERS: ATTEND Family Medicine
DX: C61 Malignant neoplasm of prostate (principal); M10.9 Gout, unspecified; E53.8 Deficiency of other specified B group vitamins; R73.01 Impaired fasting glucose
CPT/HCPCS: 80053; 82607; 82728; 83036; 83525; 83880; 84550; 85025; G0103

== ENCOUNTER → 2022-06-13 | Outpatient (REF) | payer MEDICARE, OTHER ==
[2022-06-13 12:10] LABS: ALBUMIN 3.9 G/DL (3.2-5.2); BILIRUBIN,TOTAL 0.4 MG/DL (0.3-1.2); CALCIUM LEVEL 8.9 MG/DL (8.3-10.6); CHOLESTEROL RISK RATIO 2.7 (<5); CREATININE FOR GFR 1.27 MG/DL (0.70-1.30); HDL CHOLESTEROL 52.9 MG/DL (>40); LDL CHOLESTEROL 58.5 MG/DL (<100); NON-HDL-C 90.1 MG/DL; POTASSIUM SERUM 4.4 MMOL/L (3.5-5.1); PROSTATIC SPECIFIC AG MONITOR 0.04 NG/ML (< 4.00); TOTAL PROTEIN 6.8 G/DL (5.7-8.2)
[2022-06-13 13:37] LABS: HEMOGLOBIN A1c 5.7 % (4.0-6.0)
[2022-06-14 08:09] LABS: APOLIPOPROTEIN B/A-1 RATIO 0.4 ratio (0.0-0.7); INSULIN LEVEL 20.7 uIU/mL (2.6-24.9)
== END ==
LOC: M SFHCCLAY 08:18
PROVIDERS: ATTEND Family Medicine
DX: R73.01 Impaired fasting glucose (principal); C61 Malignant neoplasm of prostate; E78.00 Pure hypercholesterolemia, unspecified

== ENCOUNTER → 2022-11-14 | Outpatient (REF) | payer MEDICARE, OTHER ==
[~2022-11-14] MED LIST changes: +METF750T36 PO; +ZINC220T3 PO
[2022-11-14 13:29] LABS: BASO % 0.5 % (0.0-1.0); EOS # 0.1 10^3/uL (0.0-0.5); EOS % 2.1 % (0.0-3.0); HEMATOCRIT 45.6 % (42.0-52.0); HEMOGLOBIN 14.8 g/dl (13.5-17.5); LYMPH % 15.6 % (24.0-44.0); MEAN CORPUSCULAR HEMOGLOBIN 29.4 pg (27.0-33.0); MEAN CORPUSCULAR HGB CONC 32.5 g/dl (32.0-36.5); MEAN CORPUSCULAR VOLUME 90.7 fl (80.0-96.0); MONO # 0.5 10^3/uL (0.0-0.8); MONO % 8.1 % (2.0-8.0); NEUTROPHILS # 4.6 10^3/uL (1.5-8.5); NEUTROPHILS % 73.2 % (36.0-66.0); PLATELET COUNT, AUTOMATED 215 10^3/uL (150-450); RED BLOOD COUNT 5.03 10^6/uL (4.30-6.10); WHITE BLOOD COUNT 6.3 10^3/uL (4.0-10.0)
[2022-11-14 13:49] LABS: HEMOGLOBIN A1c 5.4 % (4.0-6.0)
[2022-11-14 13:58] LABS: PROSTATIC SPECIFIC AG MONITOR 0.04 NG/ML (< 4.00)
[2022-11-14 14:01] LABS: URIC ACID 4.5 MG/DL (3.7-9.2)
[2022-11-14 14:04] LABS: ALBUMIN 3.8 G/DL (3.2-5.2); BILIRUBIN,TOTAL 0.5 MG/DL (0.3-1.2); CALCIUM LEVEL 9.4 MG/DL (8.3-10.6); CREATININE FOR GFR 1.26 MG/DL (0.70-1.30); GLOMERULAR FILTRATION RATE 59.4 (>42); POTASSIUM SERUM 4.7 MMOL/L (3.5-5.1); TOTAL PROTEIN 6.4 G/DL (5.7-8.2)
== END ==
LOC: M SFHCCLAY 08:18
PROVIDERS: ATTEND Family Medicine
DX: I10 Essential (primary) hypertension (principal); R73.01 Impaired fasting glucose; M10.9 Gout, unspecified; E55.9 Vitamin D deficiency, unspecified; C61 Malignant neoplasm of prostate

== ENCOUNTER → 2023-05-29 | Outpatient (REF) | payer MEDICARE, OTHER ==
[~2023-05-29] MED LIST changes: -ASPI-161 PO; +ASPI-615 PO; -FEBU40TA2 PO; +FEBU40TA6 PO; +IRBE75TA11 PO; -IRBE75TA4 PO
[2023-05-29 12:15] LABS: HEMOGLOBIN A1c 5.9 % (4.0-6.0)
[2023-05-29 12:19] LABS: BASO % 0.4 % (0.0-1.0); EOS # 0.1 10^3/uL (0.0-0.5); EOS % 1.1 % (0.0-3.0); HEMATOCRIT 43.3 % (42.0-52.0); HEMOGLOBIN 13.9 g/dl (13.5-17.5); LYMPH # 0.5 10^3/uL (1.5-5.0); LYMPH % 5.5 % (24.0-44.0); MEAN CORPUSCULAR HEMOGLOBIN 29.4 pg (27.0-33.0); MEAN CORPUSCULAR HGB CONC 32.1 g/dl (32.0-36.5); MEAN CORPUSCULAR VOLUME 91.5 fl (80.0-96.0); MONO # 0.6 10^3/uL (0.0-0.8); MONO % 6.8 % (2.0-8.0); NEUTROPHILS # 7.3 10^3/uL (1.5-8.5); PLATELET COUNT, AUTOMATED 191 10^3/uL (150-450); RED BLOOD COUNT 4.73 10^6/uL (4.30-6.10); WHITE BLOOD COUNT 8.4 10^3/uL (4.0-10.0)
[2023-05-29 12:35] LABS: CHOLESTEROL RISK RATIO 2.42 (<5); FERRITIN 90.1 NG/ML (10.5-307.3); HDL CHOLESTEROL 56.6 MG/DL (>40); LDL CHOLESTEROL 54.8 MG/DL (<100); NON-HDL-C 80.4 MG/DL
[2023-05-29 12:38] LABS: CREATININE, URINE 214.8 MG/DL; MAU/CREAT RATIO 9.3 MCG/MG (0.0-30.0)
[2023-05-30 23:07] LABS: INSULIN LEVEL 29.3 uIU/mL (2.6-24.9)
== END ==
LOC: M SFHCCLAY 08:24
PROVIDERS: ATTEND Family Medicine
DX: R73.01 Impaired fasting glucose (principal); K76.0 Fatty (change of) liver, not elsewhere classified; E53.8 Deficiency of other specified B group vitamins

== ENCOUNTER → 2023-06-12 | Outpatient (CLI) | payer MEDICARE, OTHER | LOC: M PLAIMG 13:07 | PROVIDERS: ATTEND Family Medicine | DX: I35.9 Nonrheumatic aortic valve disorder, unspecified (principal) ==

== ENCOUNTER → 2023-11-01 | Outpatient (REF) | payer MEDICARE, OTHER ==
[~2023-11-01] MED LIST changes: -B-CO1TAB12 PO; +B-CO1TAB14 PO
[2023-11-01 13:31] LABS: HEMOGLOBIN A1c 5.8 % (4.0-6.0)
[2023-11-01 13:32] LABS: ALKALINE PHOSPHATASE 91 U/L (46-116); ALT/SGPT 31 U/L (7.0-40); AST/SGOT 21 U/L (<34); BILIRUBIN,TOTAL 0.5 MG/DL (0.3-1.2); BLOOD UREA NITROGEN 16 MG/DL (9-23); CALCIUM LEVEL 9.5 MG/DL (8.3-10.6); CARBON DIOXIDE LEVEL 31 MMOL/L (20-31); CHLORIDE LEVEL 105 MMOL/L (98-107); CHOLESTEROL LEVEL 151 MG/DL (<200); CHOLESTEROL RISK RATIO 2.66 (<5); GLOMERULAR FILTRATION RATE > 60.0 (>42); GLUCOSE, FASTING 103 MG/DL (74-106); HDL CHOLESTEROL 56.7 MG/DL (>40); LDL CHOLESTEROL 60.3 MG/DL (<100); NON-HDL-C 94.3 MG/DL; POTASSIUM SERUM 4.7 MMOL/L (3.5-5.1); PROSTATIC SPECIFIC AG MONITOR 0.04 NG/ML (< 4.00); PTH INTACT 51.1 PG/ML (18.5-88.0); SODIUM LEVEL 141 MMOL/L (136-145); TOTAL PROTEIN 6.8 G/DL (5.7-8.2); TRIGLYCERIDES LEVEL 170 MG/DL (<150)
== END ==
LOC: M SFHCPLAZ 08:30
PROVIDERS: ATTEND Family Medicine
DX: R73.01 Impaired fasting glucose (principal); I10 Essential (primary) hypertension; C61 Malignant neoplasm of prostate; E78.5 Hyperlipidemia, unspecified; E55.9 Vitamin D deficiency, unspecified

== ENCOUNTER → 2023-12-08 | Outpatient (REF) | payer MEDICARE, OTHER | LOC: M SFHCWOUN 16:27 | PROVIDERS: ATTEND Surgery | DX: L97.524 Non-pressure chronic ulcer of other part of left foot with necrosis of bone (principal); M86.172 Other acute osteomyelitis, left ankle and foot ==

== ENCOUNTER → 2024-01-10 | Outpatient (REF) | payer MEDICARE, OTHER | LOC: M LAB REF 14:02 | PROVIDERS: ATTEND Podiatrist Foot & Ankle Surgery | DX: L97.524 Non-pressure chronic ulcer of other part of left foot with necrosis of bone (principal) ==

== ENCOUNTER → 2024-03-01 | Outpatient (REF) | payer MEDICARE, OTHER ==
[2024-03-01 13:25] LABS: PROSTATIC SPECIFIC AG MONITOR 0.04 NG/ML (< 4.00)
[2024-03-01 13:32] LABS: ALBUMIN 3.9 G/DL (3.2-5.2); BILIRUBIN,TOTAL 0.4 MG/DL (0.3-1.2); CALCIUM LEVEL 9.9 MG/DL (8.3-10.6); CREATININE FOR GFR 1.33 MG/DL (0.70-1.30); GLOMERULAR FILTRATION RATE 55.7 (>42); POTASSIUM SERUM 4.8 MMOL/L (3.5-5.1); PTH INTACT 35.1 PG/ML (18.5-88.0); TOTAL 25(OH) VITAMIN D 90.7 NG/ML (20.0-100.0)
== END ==
LOC: M SFHCPLAZ 08:05
PROVIDERS: ATTEND Family Medicine
DX: R73.01 Impaired fasting glucose (principal); I10 Essential (primary) hypertension; C61 Malignant neoplasm of prostate; E55.9 Vitamin D deficiency, unspecified

== ENCOUNTER → 2024-03-08 | Outpatient (CLI) | payer MEDICARE, OTHER | LOC: M PLAIMG 14:20 | PROVIDERS: ATTEND Family Medicine | DX: M47.816 Spondylosis without myelopathy or radiculopathy, lumbar region (principal) ==

== ENCOUNTER → 2024-05-26 | Outpatient (CLI) | payer MEDICARE, OTHER ==
[~2024-05-26] MED LIST changes: -AMIT24CA7 PO; +LUBI24CA32 PO
== END ==
LOC: M SLEEP 20:00
PROVIDERS: ATTEND Physician Assistant
DX: G47.33 Obstructive sleep apnea (adult) (pediatric) (principal)

== ENCOUNTER → 2024-07-16 | Outpatient (REF) | payer MEDICARE, OTHER ==
[2024-07-16 13:09] LABS: ALBUMIN 3.7 G/DL (3.2-5.2); BILIRUBIN,TOTAL 0.3 MG/DL (0.3-1.2); CALCIUM LEVEL 9.5 MG/DL (8.3-10.6); CREATININE FOR GFR 1.48 MG/DL (0.70-1.30); GLOMERULAR FILTRATION RATE 48.7 (>42); POTASSIUM SERUM 5.1 MMOL/L (3.5-5.1); PROSTATIC SPECIFIC AG MONITOR 0.04 NG/ML (< 4.00); PTH INTACT 38.5 PG/ML (18.5-88.0); TOTAL PROTEIN 6.7 G/DL (5.7-8.2)
[2024-07-16 13:24] LABS: HEMOGLOBIN A1c 6.1 % (4.0-6.0)
== END ==
LOC: M SFHCPLAZ 07:30
PROVIDERS: ATTEND Family Medicine
DX: R73.01 Impaired fasting glucose (principal); I10 Essential (primary) hypertension; C61 Malignant neoplasm of prostate; E55.9 Vitamin D deficiency, unspecified; E53.8 Deficiency of other specified B group vitamins

== ENCOUNTER → 2024-09-04 | Outpatient (CLI) | payer MEDICARE, OTHER | LOC: M SLEEP 20:00 | PROVIDERS: ATTEND Physician Assistant | DX: G47.33 Obstructive sleep apnea (adult) (pediatric) (principal) ==

== ENCOUNTER → 2024-11-27 | Outpatient (REF) | payer MEDICARE, OTHER ==
[2024-11-27 12:42] LABS: PROSTATIC SPECIFIC AG MONITOR 0.04 NG/ML (< 4.00)
[2024-11-27 12:44] LABS: PTH INTACT 28.5 PG/ML (18.5-88.0)
== END ==
LOC: M SFHCPLAZ 07:29
PROVIDERS: ATTEND Family Medicine
DX: C61 Malignant neoplasm of prostate (principal); E55.9 Vitamin D deficiency, unspecified

== ENCOUNTER → 2024-12-02 | Outpatient (CLI) | payer MEDICARE, OTHER ==
[2024-12-02 15:26] LABS: BASO # 0.0 10^3/uL (0.0-0.2); BASO % 0.3 % (0.0-1.0); EOS # 0.2 10^3/uL (0.0-0.5); EOS % 2.0 % (0.0-3.0); LYMPH # 0.9 10^3/uL (1.5-5.0); LYMPH % 7.8 % (24.0-44.0); MONO # 0.9 10^3/uL (0.0-0.8); MONO % 8.1 % (2.0-8.0); NEUTROPHILS # 8.8 10^3/uL (1.5-8.5); NEUTROPHILS % 81.3 % (36.0-66.0); PLATELET COUNT, AUTOMATED 276 10^3/uL (150-450)
[2024-12-02 15:31] LABS: ERYTHROCYTE SEDIMENTATION RATE 86 mm/hr (0-20)
[2024-12-02 15:59] LABS: TOTAL PROTEIN,RANDOM URINE 36.4 MG/DL (0.0-14.0)
[2024-12-02 16:04] LABS: CREATININE, URINE 149.4 MG/DL; MALB URINE SIEMENS 12.0 MG/L; MAU/CREAT RATIO 8.0 MCG/MG (0.0-30.0)
[2024-12-02 16:11] LABS: ESTIMATED AVERAGE GLUCOSE 140.0 MG/DL (60-110)
[2024-12-02 16:17] LABS: ALT/SGPT 36.0 U/L (7.0-40); AST/SGOT 23.0 U/L (<34); CALCIUM LEVEL 9.6 MG/DL (8.3-10.6); CARBON DIOXIDE LEVEL 28.0 MMOL/L (20-31); CHLORIDE LEVEL 105.0 MMOL/L (98-107); CHOLESTEROL LEVEL 135.0 MG/DL (<200); CHOLESTEROL RISK RATIO 2.5 (<5); CREATININE FOR GFR 1.18 MG/DL (0.70-1.30); GLOMERULAR FILTRATION RATE 63.6 (>42); LDL CHOLESTEROL 49.6 MG/DL (<100); NON-HDL-C 81.2 MG/DL; POTASSIUM SERUM 4.8 MMOL/L (3.5-5.1); PTH INTACT 36.6 PG/ML (18.5-88.0); SODIUM LEVEL 142.0 MMOL/L (136-145); TRIGLYCERIDES LEVEL 158.0 MG/DL (<150)
[2024-12-02 16:18] LABS: FREE T4 0.88 NG/DL (0.89-1.76)
[2024-12-02 16:19] LABS: VITAMIN B12 LEVEL 591.0 PG/ML (211-911)
[2024-12-02 16:22] LABS: C REACTIVE PROTEIN QUANTITATIV 13.39 MG/DL (<1.0)
== END ==
LOC: M PLALAB 14:32
PROVIDERS: ATTEND Family Medicine
DX: I12.9 Hypertensive chronic kidney disease with stage 1 through stage 4 chronic kidney disease, or unspecified chronic kidney disease (principal); R73.01 Impaired fasting glucose; E78.5 Hyperlipidemia, unspecified; E55.9 Vitamin D deficiency, unspecified; N18.31 Chronic kidney disease, stage 3a; E53.8 Deficiency of other specified B group vitamins; L03.116 Cellulitis of left lower limb

== ENCOUNTER → 2024-12-03 | Outpatient (REF) | payer MEDICARE, OTHER | LOC: M SFHCWOUN 17:55 | PROVIDERS: ATTEND Surgery | DX: L97.522 Non-pressure chronic ulcer of other part of left foot with fat layer exposed (principal) ==